=== PATIENT | male | born 1940 | race Caucasian/White ===

== ENCOUNTER 2017-01-09 09:04 | Day surgery (SDC) | payer MEDICARE ==
[2017-01-01 12:13] VITALS: BMI 31.6
--- NOTE | 2017-01-09 09:44 | RAD ---
HISTORY: pre-op COMPARISON: 10/21/2014 TECHNIQUE: Chest PA and lateral FINDINGS: LUNGS: No active pulmonary disease. PLEURA: No significant pleural effusion identified. No pneumothorax apparent. CARDIOVASCULAR: Normal. OSSEOUS STRUCTURES: No significant abnormalities. VISUALIZED UPPER ABDOMEN: Normal. OTHER FINDINGS: None. IMPRESSION: No active disease.
[2017-01-09] MEDS ORDERED: Iohexol 240 (50 ml) ONE (11:04)
[2017-01-09] MEDS ORDERED: Propofol 10 mg/ml Inj (20 ML) ONE (11:35)
[2017-01-09] MEDS ORDERED: Midazolam 2 MG/2 ML VIAL ONE (11:40)
[2017-01-09] MEDS ORDERED: Aztreonam 1 Gm in NS 100mL 100 ML IVPB STA (11:50)
[2017-01-09] MEDS ORDERED: Sevoflurane - Inhalation Anesthetic Liq (250 ml) ONE (11:51)
[2017-01-09] MEDS ORDERED: Lactated Ringer's 1,000 ML IV SCH (12:30)
[2017-01-09] MEDS ORDERED: Morphine 2 mg/ml ISec IVP ONE (13:00)
[2017-01-09] MEDS ORDERED: Morphine 2 mg/ml ISec ONE (13:03)
[2017-01-09] MEDS ORDERED: Morphine 2 mg/ml ISec IM STA (13:06)
--- NOTE | 2017-01-09 13:09 | OP ---
PROCEDURE DATE: 01/09/2017 PREOPERATIVE DIAGNOSIS: Right mid ureteral calculus. POSTOPERATIVE DIAGNOSIS: Right mid ureteral calculus. PROCEDURE: Cystoscopy, extraction of right pigtail stent, right ureteroscopy with laser lithotripsy using holmium laser of a mid right ureteral calculus and then insertion of a right pigtail stent, 6-F rench 26 cm. DESCRIPTION OF OPERATION: After adequate LMA anesthesia was given, the patient was placed in lithoto my, prepped and draped in usual manner. The 22-Guyanese cystourethroscope was introduced under direct vision. The right stent could be seen extruding from the right ureteral orifice. The other findings from the prior cystoscopy have not changed. The stent was grasped with foreign body forceps and bro ught out through the opening of the penis. A 0.035 sensor wire was then advanced through the stent u p to the kidney and the stent was then completely removed leaving the sensor wire in place. A 7-Fren ch semi-rigid long ureteroscope was then introduced. It was not necessary to dilate the ureteral luis fice, I could look up to the mid ureter where the stone was seen. It was lasered into small little p ieces at a setting of 6 and 6 on the holmium laser. Inspection of the rest of the ureter showed no e vidence of other stone, fragments remaining were very tiny and should easily pass. The ureter was co mpletely intact and the cystoscope was removed under direct vision. The sensor wire was then backloa ded on to the 22 Guyanese cystoscope and a 6-Guyanese 26 cm pigtail stent with the string still attached was then advanced over the sensor wire. When properly placed, the wire was removed and the stent coi led nicely in the right renal pelvis in the bladder. The bladder was drained. The cystoscope was re moved. Tegaderm was used to secure the string to the penis. The patient was then awakened and broug ht to recovery room in good condition. ADDENDUM Prior to starting procedure 1 gram of IV Azactam was given. Hank Gage MD cc: [phone] TT: 01/09/2017 13:09:14 jane
[2017-01-09 14:29] VITALS: RESP 18; TEMP 97.3
[2017-01-09 14:30] VITALS: BP 123/72; PULSE 66; O2SAT 94
--- NOTE | 2017-01-12 15:13 | RAD ---
PROCEDURE: Fluoroscopy up to 1 hour HISTORY: STENT REMOVAL/INSERTION / LASER LITHOTRIPSY (RIGHT) COMPARISON: TECHNIQUE: Fluoroscopy was provided in the operating room. 1 minutes and 41 seconds of fluoro time was utilized. Five images were submitted FINDINGS: Images show placement of a wire and stent in the right ureter IMPRESSION: As above
== END 2017-01-09 16:02 | disposition home or self-care (01) ==
LOC: SDS 09:04 → MERGE 11:00 → SDS 16:02
PROVIDERS: ATTEND Urology
DX: N20.1 Calculus of ureter (principal); I10 Essential (primary) hypertension
CPT/HCPCS: 52325; 52332; 71020; 76000; 87086; C2625; J2250; J2270; J2704; J3010; J7120 ×2; Q9966

== ENCOUNTER 2017-10-02 18:38 | Inpatient (IN) | payer MEDICARE ==
[2017-10-02 18:53] VITALS: BMI 30.7
--- NOTE | 2017-10-02 19:12 | ED PDOC ---
Arrival/HPI - General Chief Complaint: Flu-like Symptoms Time Seen by Provider: 10/02/17 18:55 Historian: Patient - History of Present Illness Narrative History of Present Illness (Text): 10/02/17 19:10 Yusef Montes is a 76 year old male, whose past medical history includes hypertension, diabetes, nephrolithiasis, presents to the Emergency department complaining of subjective fever and nausea from 3pm today. Patient informs taking tylenol per os with no improvement to symptoms. Patient denies chest pain , shortness of breath, abdominal pain, dysuria, hematuria or any other complaints. Time/Duration: 4-6 hours Symptom Onset: Gradual Symptom Course: Unchanged Activities at Onset: Light Context: Home Past Medical History - Provider Review Nursing Documentation Reviewed: Yes - Tetanus Immunization Tetanus Immunization: Unknown - Cardiac Hx Hypertension: Yes Hx Pacemaker: No - Pulmonary Hx Respiratory Disorders: No - Neurological Hx Paralysis: No - HEENT Hx Cataracts: Yes Hx Macular Degeneration: Yes - Renal Hx Kidney Stones: Yes - Endocrine/Metabolic Hx Diabetes Mellitus Type 2: Yes - Hematological/Oncological Hx Blood Transfusions: No - Integumentary Hx Dermatological Disorder: No - Musculoskeletal/Rheumatological Hx Musculoskeletal Disorders: Yes - Gastrointestinal Hx Gastrointestinal Disorders: No - Genitourinary/Gynecological Hx Genitourinary Disorders: No - Psychiatric Hx Emotional Abuse: No Hx Physical Abuse: No Hx Substance Use: No - Past Surgical History Past Surgical History: Non-Contributing - Surgical History Hx Appendectomy: Yes Other/Comment: eye laser surgery. hand surgery - Anesthesia Hx Anesthesia: Yes Hx Anesthesia Reactions: No Hx Malignant Hyperthermia: No - Suicidal Assessment Feels Threatened In Home Enviroment: No Family/Social History - Physician Review Nursing Documentation Reviewed: Yes Family/Social History: Unknown Family HX Smoking Status: Never Smoked Hx Alcohol Use: No Hx Substance Use: No Hx Substance Use Treatment: No Allergies/Home Meds Allergies/Adverse Reactions: Allergies ciprofloxacin [From Cipro] Allergy (Verified 10/02/17 18:53) RASH ciprofloxacin HCl [From Cipro] Allergy (Verified 10/02/17 18:53) RASH ibuprofen Allergy (Verified 10/02/17 18:53) RASH Penicillins Allergy (Verified 10/02/17 18:53) RASH Home Medications: Home Meds Medication Instructions Recorded Confirmed Aspirin [Ecotrin] 81 mg PO DAILY 01/01/17 10/02/17 Atorvastatin [Lipitor] 40 mg PO QPM 01/01/17 10/02/17 Cholecalciferol (Vitamin D3) 1,000 unit PO DAILY 01/01/17 10/02/17 [Vitamin D3] Cinnamon Bark [Zia Natural 2 cap PO DAILY 01/01/17 10/02/17 Cinnamon] Dorzolamide 2%/Timolol 0.5% 1 drop EACHEYE BID 01/01/17 10/02/17 [Cosopt Ocumeter Plus 2%-0.5% 10 Ml] Ezetimibe [Zetia] 10 mg PO QPM 01/01/17 10/02/17 Hydrocortisone Radha 0.2% Cr 15 applic TOP BID PRN 01/01/17 10/02/17 [Westcort] Latanoprost 1 drop EACHEYE HS 01/01/17 10/02/17 Losartan [Cozaar] 50 mg PO DAILY 01/01/17 10/02/17 Lutein/Zeaxanthin 1 cap PO DAILY 01/01/17 10/02/17 [Lutein-Zeaxanthin 25-5 mg Sfgl] Ranitidine HCl [Heartburn Relief] 150 mg PO DAILY 01/01/17 10/02/17 ALPRAZolam [Xanax] 0.25 mg PO DAILY PRN 01/09/17 10/02/17 Review of Systems - Physician Review All systems were reviewed & negative as marked: Yes - Review of Systems Constitutional: Fevers Eyes: Normal ENT: Normal Respiratory: Normal. absent: SOB, Cough Cardiovascular: Normal Gastrointestinal: Nausea. absent: Abdominal Pain Genitourinary Male: Normal. absent: Dysuria, Hematuria Musculoskeletal: Normal Skin: Normal Neurological: Normal Endocrine: Normal Hemo/Lymphatic: Normal Psychiatric: Normal Physical Exam Vital Signs Reviewed: Yes Vital Signs Temp Pulse Resp BP Pulse Ox 10/02/17 18:50 99.9 F H 120 H 16 126/71 97 Temperature: Febrile Blood Pressure: Normal Pulse: Tachycardic Respiratory Rate: Normal Appearance: Positive for: Well-Appearing, Non-Toxic, Comfortable Pain Distress: None Mental Status: Positive for: Alert and Oriented X 3 - Systems Exam Head: Present: Atraumatic, Normocephalic Pupils: Present: PERRL Extroacular Muscles: Present: EOMI Conjunctiva: Present: Normal Mouth: Present: Moist Mucous Membranes Neck: Present: Normal Range of Motion Respiratory/Chest: Present: Clear to Auscultation, Good Air Exchange. No: Respiratory Distress, Accessory Muscle Use Cardiovascular: Present: Regular Rate and Rhythm, Normal S1, S2. No: Murmurs Abdomen: Present: Normal Bowel Sounds. No: Tenderness, Distention, Peritoneal Signs Back: Present: Normal Inspection Upper Extremity: Present: Normal Inspection. No: Cyanosis, Edema Lower Extremity: Present: Normal Inspection. No: Edema Neurological: Present: GCS=15, CN II-XII Intact, Speech Normal Skin: Present: Warm, Dry, Normal Color. No: Rashes Psychiatric: Present: Alert, Oriented x 3, Normal Insight, Normal Concentration Medical Decision Making ED Course and Treatment: 10/02/17 19:15 Impression: 76 year old male presents to the Emergency department for subjective fever and associated nausea. Plan: --Blood Gas --EKG --Labs, lipase, magnesium --Chest X-ray --Tylenol --Blood Culture --Urine Culture --Influenza A B Stat --Urinalysis -- Reassess and disposition Progress Notes: - RAD Interpretation Radiology Orders: 10/02/17 19:10 CHEST PORTABLE [RAD] Stat - Medication Orders Current Medication Orders: Discontinued Medications Acetaminophen (Tylenol 325mg Tab) 975 mg PO STAT STA Stop: 10/02/17 19:13 - Scribe Statement The provider has reviewed the documentation as recorded by the Scribe Juan Manuel Oden. All medical record entries made by the Scribe were at my direction and personally dictated by me. I have reviewed the chart and agree that the record accurately reflects my personal performance of the history, physical exam, medical decision making, and the department course for this patient. I have also personally directed, reviewed, and agree with the discharge instructions and disposition. Disposition/Present on Arrival - Present on Arrival History of DVT/PE: No History of Uncontrolled Diabetes: No Urinary Catheter: No History of Decub. Ulcer: No History Surgical Site Infection Following: None - Disposition Forms: [employer] (Latvian)
[2017-10-02] MEDS ORDERED: cefTRIAXone 2 GM IN NS 2 GM/100 ML BAG IVPB STA (19:24)
[2017-10-02] MEDS ORDERED: Azithromycin 500MG/NS 250ml 500 MG/250 ML BAG IVPB STA (19:24)
[2017-10-02 19:36] LABS: BASO # 0.01 K/mm3 (0.0-2.0); BASO % 0.2 % (0.0-3.0); EOS % 0.2 % (1.5-5.0); GRAN # 3.54 (1.4-6.5); GRAN % 70.2 % (50.0-68.0); HEMATOCRIT 44.1 % (42.0-52.0); LYMPH # 1.2 (1.2-3.4); LYMPH % 23.2 % (22.0-35.0); MEAN CELL VOLUME 82.1 fl (80.0-105.0); MEAN CORPUSCULAR HEMOGLOBIN 26.6 pg (25.0-35.0); MEAN CORPUSCULAR HGB CONC 32.4 g/dl (31.0-37.0); MEAN PLATELET VOLUME 9.9 fl (7.0-11.0); MONO # 0.3 (0.1-0.6); MONO % 6.2 % (1.0-6.0); RED CELL DISTRIBUTION WIDTH 15.9 % (11.5-14.5); VENOUS BLOOD GAS BASE EXCESS -0.5 mmol/L (0.0-2.0)
[2017-10-02 19:51] LABS: INR 0.99 (0.93-1.08); PARTIAL THROMBOPLASTIN TIME 32.6 Seconds (25.1-36.5)
[2017-10-02 20:07] LABS: ALB/GLOB RATIO 1.6 (1.1-1.8); ALKALINE PHOSPHATASE 42 U/L (38-126); ALT/SGPT 39 U/L (7-56); AST/SGOT 34 U/L (17-59); BILIRUBIN,TOTAL 0.5 mg/dL (0.2-1.3); BLOOD UREA NITROGEN 22 mg/dL (7-21); CALCIUM 9.6 mg/dL (8.4-10.5); CARBON DIOXIDE 24 mmol/L (21-33); CHLORIDE 106 mmol/L (98-107); GFR AFRICAN-AMERICAN 55; GLUCOSE,RANDOM 159 mg/dL (70-110); LIPASE 143 U/L (23-300); MAGNESIUM 1.7 mg/dL (1.7-2.2); POTASSIUM 4.1 mmol/L (3.6-5.0); SODIUM 139 mmol/L (132-148); TOTAL PROTEIN 7.1 g/dL (5.8-8.3)
[2017-10-02 20:13] LABS: TROPONIN I < 0.01 ng/mL
[2017-10-02 21:58] LABS: PH,URINE 5.5 (4.7-8.0); URINE BILIRUBIN NEGATIVE (NEGATIVE); URINE BLOOD TRACE-INTACT (NEGATIVE); URINE GLUCOSE (UA) NEGATIVE (NEGATIVE); URINE KETONE NEGATIVE (NEGATIVE); URINE LEUKOCYTE ESTERASE NEGATIVE Leu/uL (NEGATIVE); URINE PROTEIN TRACE mg/dL (<30 mg/dL); URINE UROBILINOGEN 0.2 E.U./dL (<1 E.U./dL)
[2017-10-02 22:04] LABS: URINE APPEARANCE CLEAR (CLEAR); URINE COLOR YELLOW (YELLOW)
[2017-10-02 22:11] LABS: URINE AMORPHOUS SEDIMENT FEW; URINE BACTERIA MANY (NEG); URINE WBC 0 - 2 /hpf (0-6)
--- NOTE | 2017-10-02 23:05 | ED PDOC ---
Physical Exam Vital Signs Reviewed: Yes Vital Signs Temp Pulse Resp BP Pulse Ox 10/02/17 22:34 85 18 130/76 97 10/02/17 19:37 100.6 F H 10/02/17 18:50 99.9 F H 120 H 16 126/71 97 Appearance: Positive for: Well-Appearing, Non-Toxic, Comfortable Pain Distress: None Mental Status: Positive for: Alert and Oriented X 3 Medical Decision Making ED Course and Treatment: 10/02/17 23:05: Patient endorsed to my by Dr. Lyle. Pending Chest and Abdomen /Pelvis CT results. Willl reassess and disposition. 10/02/17 23:59: Discussed CT results with the patient. CT Chest Without Intravenous Contrast EXAM DATE/TIME: 10/02/2017 8:08 PM Dictated and Authenticated by: Avelina Azar MD IMPRESSION: No acute findings. - Lab Interpretations Lab Results: 10/02/17 19:20 10/02/17 19:20 Lab Results 10/02/17 21:32: Influenza Typ A,B (EIA) Negative for flu a/b 10/02/17 21:32: Urine Color Yellow, Urine Appearance Clear, Urine pH 5.5, Ur Specific Ryan >= 1.030, Urine Protein Trace H, Urine Glucose (UA) Negative, Urine Ketones Negative, Urine Blood Trace-intact H, Urine Nitrate Negative, Urine Bilirubin Negative, Urine Urobilinogen 0.2, Ur Leukocyte Esterase Negative , Urine RBC 2 - 5, Urine WBC 0 - 2, Ur Epithelial Cells None, Amorphous Sediment Few, Urine Bacteria Many, Urine Other Fiber 10/02/17 19:20: pO2 75 H, VBG pH 7.40, VBG pCO2 39.0 L, VBG HCO3 24.2, VBG Total CO2 25.4, VBG O2 Sat (Calc) 97.5 H, VBG Base Excess -0.5 L, VBG Potassium 4.1, Sodium 139.0, Chloride 106.0, Glucose 167 H, Lactate 1.9, FiO2 21.0, Venous Blood Potassium 4.1 10/02/17 19:20: Sodium 139, Chloride 106, Potassium 4.1, Carbon Dioxide 24, Anion Gap 13, BUN 22 H, Creatinine 1.5, Est GFR ( Amer) 55, Est GFR (Non- Af Amer) 46, Random Glucose 159 H, Calcium 9.6, Magnesium 1.7, Total Bilirubin 0.5, AST 34, ALT 39, Alkaline Phosphatase 42, Lactate Dehydrogenase 620, Total Creatine Kinase 247 H, CK-MB (CK-2) 2.3, CK-MB (CK-2) % Cancelled, Troponin I < 0.01, Total Protein 7.1, Albumin 4.3, Globulin 2.7, Albumin/Globulin Ratio 1.6, Lipase 143 10/02/17 19:20: PT 10.8, INR 0.99, APTT 32.6 10/02/17 19:20: WBC 5.0 D, RBC 5.37, Hgb 14.3, Hct 44.1, MCV 82.1, MCH 26.6, MCHC 32.4, RDW 15.9 H, Plt Count 170, MPV 9.9, Gran % 70.2 H, Lymph % (Auto) 23.2, [place] % (Auto) 6.2 H, Eos % (Auto) 0.2 L, Baso % (Auto) 0.2, Gran # 3.54, Lymph # 1.2, [place] # 0.3, Eos # 0.0, Baso # 0.01 - RAD Interpretation Radiology Orders: 10/02/17 19:10 CHEST PORTABLE [RAD] Stat 10/02/17 20:08 CHEST,ABDOMEN, PELVIS W/O CONT [CT] Stat - Medication Orders Current Medication Orders: Discontinued Medications Acetaminophen (Tylenol 325mg Tab) 975 mg PO STAT STA Stop: 10/02/17 19:13 Last Admin: 10/02/17 19:31 Dose: Not Given Non-Admin Reason: Patient Refused MAR Pain/Vitals Document 10/02/17 19:31 HP (Rec: 10/02/17 19:31 HP [id number]) Pain Reassessment Is This A Pain ReAssessment? No Ceftriaxone Sodium (Rocephin 2 Gm Ivpb) 2 gm in 100 mls @ 100 mls/hr IVPB STAT STA PRN Reason: Protocol Stop: 10/02/17 20:23 Last Admin: 10/02/17 21:30 Dose: 100 mls/hr eMAR Start Stop Document 10/02/17 21:30 IT (Rec: 10/02/17 21:30 IT [id number]) Intravenous Solution Start Date 10/02/17 Start Time 21:30 Azithromycin (Zithromax 500mg In Ns) 500 mg in 250 mls @ 167 mls/hr IVPB STAT STA PRN Reason: Protocol Stop: 10/02/17 20:53 Last Admin: 10/02/17 22:30 Dose: 167 mls/hr eMAR Start Stop Document 10/02/17 22:30 IT (Rec: 10/02/17 22:31 IT [id number]) Intravenous Solution Start Date 10/02/17 Start Time 22:31 Ondansetron HCl (Zofran Inj) 2 mg IVP STAT STA Stop: 10/02/17 23:12 Last Admin: 10/02/17 23:15 Dose: 2 mg IVP Administration Document 10/02/17 23:15 IT (Rec: 10/02/17 23:15 IT [id number]) Charges for Administration # of IVP Administrations 1 - Scribe Statement The provider has reviewed the documentation as recorded by the Shahriaribiain Ferrer Provider Scribe Attestation: All medical record entries made by the Scribe were at my direction and personally dictated by me. I have reviewed the chart and agree that the record accurately reflects my personal performance of the history, physical exam, medical decision making, and the department course for this patient. I have also personally directed, reviewed, and agree with the discharge instructions and disposition. Disposition/Present on Arrival - Present on Arrival History of DVT/PE: No History of Uncontrolled Diabetes: No Urinary Catheter: No History of Decub. Ulcer: No History Surgical Site Infection Following: None - Disposition Referrals: Gomez Gamboa MD [Primary Care Provider] - Follow up with primary Forms: [employer] (Peruvian)
--- NOTE | 2017-10-02 23:36 | CT ---
EXAM: CT Abdomen and Pelvis Without Intravenous Contrast CLINICAL HISTORY: 76 years old, male; Signs and symptoms; Fever; Additional info: Sepsis TECHNIQUE: Axial computed tomography images of the abdomen and pelvis without intravenous contrast. All CT scans at this facility use one or more dose reduction techniques, viz.: automated exposure control; ma/kV adjustment per patient size (including targeted exams where dose is matched to indication; i.e. head); or iterative reconstruction technique. Coronal and sagittal reformatted images were created and reviewed. COMPARISON: No relevant prior studies available. FINDINGS: Cholelithiasis without cholecystitis. The liver, spleen, pancreas are grossly normal. Bilateral perinephric stranding. There are non obstructing renal calculi. The previously seen distal right ureteral calculi is no longer present. There are cystic structures within the kidneys some within the region of the renal pelvis and the collecting system. Lack of intravenous contrast is limiting however they appear similar to prior. Exophytic posterior right renal cyst is noted similar to prior. The prostate is enlarged. The urinary bladder wall slightly thickened possibly secondary to chronic bladder outlet obstruction from enlarged prostate however superimposed cystitis with the possible. Correlation with urinalysis if indicated. Diverticulosis. Appendectomy. There is an umbilical fat hernia. IMPRESSION: Previously seen distal right ureteral calculi is no longer present. Otherwise no significant change. EXAM: CT Chest Without Intravenous Contrast EXAM DATE/TIME: 10/02/2017 8:08 PM CLINICAL HISTORY: 76 years old, male; Signs and symptoms; Fever; Additional info: Sepsis TECHNIQUE: Axial computed tomography images of the chest without intravenous contrast. All CT scans at this facility use one or more dose reduction techniques, viz.: automated exposure control; ma/kV adjustment per patient size (including targeted exams where dose is matched to indication; i.e. head); or iterative reconstruction technique. Coronal and sagittal reformatted images were created and reviewed. COMPARISON: CT - ABD PELVIS W/O PO OR IV CONT 2016-12-25 07:36 FINDINGS: No aortic aneurysm. No pleural or pericardial effussions. No pulmonary consolidation. No infiltrates. IMPRESSION: No acute findings.
[2017-10-03] MEDS ORDERED: Dextrose 5%/0.45% NS 1,000 ML IV SCH (01:00)
--- NOTE | 2017-10-03 01:08 | CP.PCM.HP ---
History of Present Illness - History of Present Illness History of Present Illness: 76 year old male with a past medical history of type 2 Diabetes, dyslipidemia, glaucoma, nephrolithiasis and macular degeneration who comes in complaining of malaise and fevers that began around 3 p.m. this afternoon. The patient reports taking Tylenol earlier with no improvement in his symptoms. The patient denies any alleviating or modifying factors. The patient denies any sick contacts. The patient denies any chest pain, shortness of breath, nausea, vomiting, lightheadedness ,dizziness, changes in vision, syncopal episodes or any other complaints. Primary medical doctor: Dr. Gamboa Inventory Auditor: Dr. Corley Urologist: Dr. Gage Past medical history: see HPI Past surgical history:eye surgery, appendectomy, tennis elbow correction Allergies: Ciproflaxcn, ibuprofen, Penicillin Social history: Quit smoking 46 years ago. Denies illicit drug use. Present on Admission - Present on Admission Any Indicators Present on Admission: No Review of Systems - Constitutional Constitutional: As Per HPI - EENT Eyes: As Per HPI Ears: As Per HPI Nose/Mouth/Throat: As Per HPI - Cardiovascular Cardiovascular: As Per HPI - Respiratory Respiratory: As Per HPI - Gastrointestinal Gastrointestinal: As Per HPI - Genitourinary Genitourinary: As Per HPI - Musculoskeletal Musculoskeletal: As Per HPI - Integumentary Integumentary: As Per HPI - Neurological Neurological: As Per HPI - Psychiatric Psychiatric: As Per HPI - Endocrine Endocrine: As Per HPI - Hematologic/Lymphatic Hematologic: As Per HPI Past Patient History - Tetanus Immunizations Tetanus Immunization: Unknown - Past Social History Smoking Status: Never Smoked - CARDIAC Hx Hypertension: Yes Hx Pacemaker: No - PULMONARY Hx Respiratory Disorders: No - NEUROLOGICAL Hx Paralysis: No - HEENT Hx Cataracts: Yes Hx Macular Degeneration: Yes - RENAL Hx Kidney Stones: Yes - ENDOCRINE/METABOLIC Hx Diabetes Mellitus Type 2: Yes - HEMATOLOGICAL/ONCOLOGICAL Hx Blood Transfusions: No - INTEGUMENTARY Hx Dermatological Problems: No - MUSCULOSKELETAL/RHEUMATOLOGICAL Hx Musculoskeletal Disorders: Yes - GASTROINTESTINAL Hx Gastrointestinal Disorders: No - GENITOURINARY/GYNECOLOGICAL Hx Genitourinary Disorders: No - PSYCHIATRIC Hx Emotional Abuse: No Hx Physical Abuse: No Hx Substance Use: No - SURGICAL HISTORY Hx Appendectomy: Yes Other/Comment: eye laser surgery. hand surgery - ANESTHESIA Hx Anesthesia: Yes Hx Anesthesia Reactions: No Hx Malignant Hyperthermia: No Meds Allergies/Adverse Reactions: Allergies Allergy/AdvReac Type Severity Reaction Status Date / Time ciprofloxacin [From Cipro] Allergy RASH Verified 10/02/17 18:53 ciprofloxacin HCl Allergy RASH Verified 10/02/17 18:53 [From Cipro] ibuprofen Allergy RASH Verified 10/02/17 18:53 Penicillins Allergy RASH Verified 10/02/17 18:53 Physical Exam - Head Exam Head Exam: ATRAUMATIC, NORMAL INSPECTION, NORMOCEPHALIC - Eye Exam Eye Exam: EOMI, Normal appearance, PERRL. absent: Periorbital tenderness Pupil Exam: NORMAL ACCOMODATION, PERRL. absent: Irregular, Unequal - ENT Exam ENT Exam: Mucous Membranes Moist, Normal Oropharynx - Neck Exam Neck exam: Positive for: Normal Inspection. Negative for: Lymphadenopathy, Thyromegaly - Respiratory Exam Respiratory Exam: Clear to Auscultation Bilateral, NORMAL BREATHING PATTERN. absent: Chest Wall Tenderness, Prolonged Expiratory Phase, Respiratory Distress - Cardiovascular Exam Cardiovascular Exam: REGULAR RHYTHM, +S1, +S2 - GI/Abdominal Exam GI & Abdominal Exam: Normal Bowel Sounds, Soft. absent: Organomegaly, Tenderness - Extremities Exam Extremities exam: Positive for: normal inspection. Negative for: joint swelling , pedal edema - Back Exam Back exam: NORMAL INSPECTION. absent: CVA tenderness (L), CVA tenderness (R), paraspinal tenderness - Neurological Exam Neurological exam: Alert, CN II-XII Intact, Oriented x3 - Psychiatric Exam Psychiatric exam: Normal Affect, Normal Mood - Skin Skin Exam: Dry, Intact Results - Vital Signs Recent Vital Signs: Last Vital Signs Temp 100.6 F H 10/02/17 19:37 Pulse 85 10/02/17 22:34 Resp 18 10/02/17 22:34 BP 130/76 10/02/17 22:34 Pulse Ox 97 10/02/17 22:34 - Labs Result Diagrams: 10/02/17 19:20 10/02/17 19:20 Assessment & Plan - Assessment and Plan (Free Text) Assessment: 76 year old male with past medical history type 2 diabetes, glaucoma, dyslipidemia, nephrolithiasis, and macular degeneration who comes in for subjective fevers and malaise. Plan: 1. UTI -Urinalysis showed many bacteria in the emergency department -Rocephin 1 gm Q24H. 2. Fever -Patient reports subjective fevers at home. Rectal temperature in the emergency department 100.6F. -Source of fever yet to be found. -Chest x ray was negative for acute disease. Procalcitonin ordered .Will follow up with results. -Tylenol PRN for fevers. 3. Lower extremity swelling bilaterally -Duplex ultrasound ordered. Will f/u with results. 4. Type 2 Diabetes -Home medications held -ISS. Accuchecks. -Diabetic diet 5. Dyslipidemia -restart home medications GI ppx -Protonix DVT ppx -SCD's
[2017-10-03] MEDS: cefTRIAXone 1 gm 1 GM/100 ML BAG IVPB SCH (09:10)
[2017-10-03] MEDS: Insulin Reg-LOW-Coverage SC SCH ×4 (09:10→21:30)
[2017-10-03 10:03] LABS: ALB/GLOB RATIO 1.5 (1.1-1.8); ALKALINE PHOSPHATASE 33 U/L (38-126); ALT/SGPT 40 U/L (7-56); AST/SGOT 28 U/L (17-59); BILIRUBIN,TOTAL 0.5 mg/dL (0.2-1.3); BLOOD UREA NITROGEN 16 mg/dL (7-21); CALCIUM 8.8 mg/dL (8.4-10.5); CARBON DIOXIDE 25 mmol/L (21-33); CHLORIDE 106 mmol/L (98-107); CHOLESTEROL 117 mg/dL (130-200); GFR AFRICAN-AMERICAN > 60; GLUCOSE,RANDOM 169 mg/dL (70-110); MAGNESIUM 1.8 mg/dL (1.7-2.2); POTASSIUM 4.3 mmol/L (3.6-5.0); SODIUM 139 mmol/L (132-148); TOTAL PROTEIN 6.2 g/dL (5.8-8.3)
--- NOTE | 2017-10-03 10:15 | RAD ---
HISTORY: sepsis COMPARISON: 01/09/2017 FINDINGS: LUNGS: No active pulmonary disease. PLEURA: No significant pleural effusion identified, no pneumothorax apparent. CARDIOVASCULAR: Normal. OSSEOUS STRUCTURES: No significant abnormalities. VISUALIZED UPPER ABDOMEN: Normal. OTHER FINDINGS: None. IMPRESSION: No active disease.
[2017-10-03 11:31] LABS: BASO # 0.01 K/mm3 (0.0-2.0); BASO % 0.2 % (0.0-3.0); EOS % 0.2 % (1.5-5.0); GRAN # 2.63 (1.4-6.5); HEMATOCRIT 40.1 % (42.0-52.0); LYMPH # 2.2 (1.2-3.4); LYMPH % 42.2 % (22.0-35.0); MEAN CELL VOLUME 82.2 fl (80.0-105.0); MEAN CORPUSCULAR HEMOGLOBIN 26.4 pg (25.0-35.0); MEAN CORPUSCULAR HGB CONC 32.2 g/dl (31.0-37.0); MEAN PLATELET VOLUME 9.6 fl (7.0-11.0); MONO # 0.4 (0.1-0.6); MONO % 7.4 % (1.0-6.0); WHITE BLOOD COUNT 5.3 10^3/ul (4.5-11.0)
[2017-10-03] MEDS ORDERED: Sodium Chloride 0.9% 1,000 ML IV SCH (12:45)
[2017-10-03] MEDS: Sodium Chloride 0.9% 1,000 ML IV SCH (13:24)
--- NOTE | 2017-10-03 15:11 | CARD ---
APPROVED REPORT EKG Measurement Heart [id number] <Conclusion> Normal sinus rhythm Left anterior fascicular block Cannot rule out Inferior infarct (masked by fascicular block?), age undetermined Abnormal ECG
[2017-10-03] MEDS: Latanoprost 2.5 ml Opht Soln OU SCH ×2 (22:02→22:10)
[2017-10-04] MEDS: Pantoprazole 40 mg EC Tab PO SCH (05:21)
[2017-10-04 06:35] LABS: BASO # 0.01 K/mm3 (0.0-2.0); BASO % 0.2 % (0.0-3.0); EOS # 0.1 (0.0-0.7); EOS % 1.8 % (1.5-5.0); GRAN # 2.83 (1.4-6.5); HEMATOCRIT 40.9 % (42.0-52.0); LYMPH # 2.7 (1.2-3.4); LYMPH % 42.5 % (22.0-35.0); MEAN CELL VOLUME 82.5 fl (80.0-105.0); MEAN CORPUSCULAR HGB CONC 31.5 g/dl (31.0-37.0); MONO # 0.7 (0.1-0.6); MONO % 10.5 % (1.0-6.0); RED CELL DISTRIBUTION WIDTH 16.2 % (11.5-14.5); WHITE BLOOD COUNT 6.3 10^3/ul (4.5-11.0)
[2017-10-04 06:45] LABS: ALB/GLOB RATIO 1.4 (1.1-1.8); ALKALINE PHOSPHATASE 38 U/L (38-126); ALT/SGPT 36 U/L (7-56); AST/SGOT 26 U/L (17-59); BILIRUBIN,TOTAL 0.2 mg/dL (0.2-1.3); BLOOD UREA NITROGEN 18 mg/dL (7-21); CALCIUM 8.6 mg/dL (8.4-10.5); CARBON DIOXIDE 25 mmol/L (21-33); CHLORIDE 107 mmol/L (98-107); GFR AFRICAN-AMERICAN > 60; GLUCOSE,RANDOM 105 mg/dL (70-110); SODIUM 140 mmol/L (132-148); TOTAL PROTEIN 5.9 g/dL (5.8-8.3)
[2017-10-04 09:26] LABS: NEUTROPHIL 40 % (50.0-70.0)
[2017-10-04 09:27] LABS: ATYPICAL LYMPHOCYTE 6 % (0.0-0.0); EOSINOPHIL 1 % (0.0-3.0)
[2017-10-04 09:29] LABS: PLATELET COUNT 142 10^3/uL (120.0-450.0)
[2017-10-04] MEDS: cefTRIAXone 1 gm 1 GM/100 ML BAG IVPB SCH (09:53)
[2017-10-04] MEDS: Insulin Reg-LOW-Coverage SC SCH ×4 (09:56→22:47)
[2017-10-04] MEDS: Sodium Chloride 0.9% 1,000 ML IV SCH (09:56)
[2017-10-04] MEDS ORDERED: Barium Sulfate Susp 2.1% w/v, 2.0% w/w 450 mL Bottle PO ONE (10:25)
--- NOTE | 2017-10-04 13:40 | CP.PCM.PN ---
<Paul Hernadez - Last Filed: 10/04/17 13:37> Subjective - Date & Time of Evaluation Date of Evaluation: 10/04/17 Time of Evaluation: 13:38 - Subjective Subjective: Patient seen and examined at bedside. I was called overnight on patient for right sided chest pain and shoulder pain. Per chart review, patient has a history of a positive spect stress test. Today, the patient states that his pain has completely resolved after toradol. We informed him that we would give him a prescription for it outpatient. Patient states that he feels much better today and has no other complaints. Objective - Vital Signs/Intake and Output Vital Signs (last 24 hours): Temp Pulse Resp BP Pulse Ox 98.6 F 60 20 124/75 96 10/04/17 09:13 10/04/17 09:54 10/04/17 09:13 10/04/17 09:54 10/04/17 09:13 Intake and Output: 10/04/17 10/04/17 06:59 18:59 Intake Total 780 Output Total 125 Balance 655 - Medications Medications: Current Medications Acetaminophen (Tylenol 325mg Tab) 650 mg PO Q4H PRN PRN Reason: Fever >100.4 F Alprazolam (Xanax) 0.25 mg PO DAILY PRN; Protocol PRN Reason: Anxiety Stop: 10/10/17 00:57 Atorvastatin Calcium (Lipitor) 40 mg PO QPM [facility] Last Admin: 10/03/17 17:31 Dose: 40 mg Ezetimibe (Zetia) 10 mg PO QPM [facility] Last Admin: 10/03/17 17:31 Dose: 10 mg Heparin Sodium (Porcine) (Heparin) 5,000 units SC Q12 JACOB PRN Reason: Protocol Last Admin: 10/04/17 09:53 Dose: 5,000 units Ceftriaxone Sodium (Rocephin 1 Gram Ivpb (D5w)) 1 gm in 100 mls @ 100 mls/hr IVPB DAILY JACOB PRN Reason: Protocol Last Admin: 10/04/17 09:53 Dose: 100 mls/hr Sodium Chloride (Sodium Chloride 0.9%) 1,000 mls @ 50 mls/hr IV .Q20H [facility] Last Admin: 10/04/17 09:56 Dose: 50 mls/hr Insulin Human Regular (Humulin R Low) 0 units SC ACHS JACOB PRN Reason: Protocol Last Admin: 10/04/17 09:56 Dose: Not Given Ketorolac Tromethamine (Toradol) 30 mg IVP Q6H PRN PRN Reason: pain Last Admin: 10/03/17 19:57 Dose: 30 mg Latanoprost (Xalatan Opht) 0 ml OU HS [facility] Last Admin: 10/03/17 22:10 Dose: Not Given Losartan Potassium (Cozaar) 50 mg PO DAILY [facility] Last Admin: 10/04/17 09:54 Dose: 50 mg Pantoprazole Sodium (Protonix Ec Tab) 40 mg PO 0600 [facility] Last Admin: 10/04/17 05:21 Dose: 40 mg - Labs Labs: 10/04/17 06:00 10/04/17 06:00 PT 10.8 SECONDS (9.4-12.5) 10/02/17 19:20 INR 0.99 (0.93-1.08) 10/02/17 19:20 APTT 32.6 Seconds (25.1-36.5) 10/02/17 19:20 - Constitutional Appears: Well, No Acute Distress - Head Exam Head Exam: ATRAUMATIC, NORMAL INSPECTION, NORMOCEPHALIC - Eye Exam Eye Exam: EOMI, Normal appearance, PERRL Pupil Exam: NORMAL ACCOMODATION, PERRL - ENT Exam ENT Exam: Mucous Membranes Moist, Normal Exam - Neck Exam Neck Exam: Full ROM, Normal Inspection. absent: Lymphadenopathy - Respiratory Exam Respiratory Exam: Clear to Ausculation Bilateral, NORMAL BREATHING PATTERN. absent: Decreased Breath Sounds, Rales, Rhonchi, Wheezes - Cardiovascular Exam Cardiovascular Exam: REGULAR RHYTHM, +S1, +S2. absent: Murmur - GI/Abdominal Exam GI & Abdominal Exam: Soft, Normal Bowel Sounds. absent: Tenderness - Rectal Exam Rectal Exam: NORMAL INSPECTION - Extremities Exam Extremities Exam: Full ROM, Normal Capillary Refill, Normal Inspection. absent : Joint Swelling, Pedal Edema - Back Exam Back Exam: NORMAL INSPECTION. absent: CVA tenderness (L), CVA tenderness (R) - Neurological Exam Neurological Exam: Alert, Awake, CN II-XII Intact, Normal Gait, Oriented x3 - Psychiatric Exam Psychiatric exam: Normal Affect, Normal Mood - Skin Skin Exam: Dry, Intact, Normal Color, Warm Assessment and Plan - Assessment and Plan (Free Text) Assessment: A/P 76 year old male with past medical history type 2 diabetes, HTN, glaucoma, dyslipidemia, nephrolithiasis, and macular degeneration who comes in for subjective fevers and malaise. UTI -Urinalysis showed many bacteria in the emergency department, but urine cultures were negative - Rocephin 1 gm Q24H. Costochondritis - Toradol Fever - Patient reports subjective fevers at home. Rectal temperature in the emergency department 100.6F. - Source of fever yet to be found. - Chest x ray was negative for acute disease. Procalcitonin negative - Tylenol PRN for fevers. - Patient going for a CT Abdomen with PO and IV contrast today, will follow up results Lower extremity swelling bilaterally - Duplex ultrasound ordered: performed, not read Type 2 Diabetes - Home medications held - RISS Low. Accuchecks. - Diabetic diet Anxiety - Continue home Xanax .25 Daily prn Dyslipidemia - Continue home Zetia - Continue home Lipitor Hypertension - Cozaar Glaucoma - Latanoprost GI/DVT Prophylaxis: Heparin, Protonix <Shad George - Last Filed: 10/04/17 18:29> Objective - Vital Signs/Intake and Output Vital Signs (last 24 hours): Temp Pulse Resp BP Pulse Ox 98.7 F 58 L 18 149/89 100 10/04/17 16:00 10/04/17 16:00 10/04/17 16:00 10/04/17 16:00 10/04/17 16:00 Intake and Output: 10/04/17 10/04/17 06:59 18:59 Intake Total 780 Output Total 125 Balance 655 - Medications Medications: Current Medications Acetaminophen (Tylenol 325mg Tab) 650 mg PO Q4H PRN PRN Reason: Fever >100.4 F Alprazolam (Xanax) 0.25 mg PO DAILY PRN; Protocol PRN Reason: Anxiety Stop: 10/10/17 00:57 Atorvastatin Calcium (Lipitor) 40 mg PO QPM [facility] Last Admin: 10/04/17 17:34 Dose: 40 mg Ezetimibe (Zetia) 10 mg PO QPM [facility] Last Admin: 10/04/17 17:34 Dose: 10 mg Heparin Sodium (Porcine) (Heparin) 5,000 units SC Q12 [facility] PRN Reason: Protocol Last Admin: 10/04/17 09:53 Dose: 5,000 units Ceftriaxone Sodium (Rocephin 1 Gram Ivpb (D5w)) 1 gm in 100 mls @ 100 mls/hr IVPB DAILY [facility] PRN Reason: Protocol Last Admin: 10/04/17 09:53 Dose: 100 mls/hr Sodium Chloride (Sodium Chloride 0.9%) 1,000 mls @ 50 mls/hr IV .Q20H [facility] Last Admin: 10/04/17 09:56 Dose: 50 mls/hr Insulin Human Regular (Humulin R Low) 0 units SC ACHS JACOB PRN Reason: Protocol Last Admin: 10/04/17 16:28 Dose: Not Given Ketorolac Tromethamine (Toradol) 30 mg IVP Q6H PRN PRN Reason: pain Last Admin: 10/03/17 19:57 Dose: 30 mg Latanoprost (Xalatan Opht) 0 ml OU HS [facility] Last Admin: 10/03/17 22:10 Dose: Not Given Losartan Potassium (Cozaar) 50 mg PO DAILY [facility] Last Admin: 10/04/17 09:54 Dose: 50 mg Pantoprazole Sodium (Protonix Ec Tab) 40 mg PO 0600 [facility] Last Admin: 10/04/17 05:21 Dose: 40 mg - Labs Labs: 10/04/17 06:00 10/04/17 06:00 PT 10.8 SECONDS (9.4-12.5) 10/02/17 19:20 INR 0.99 (0.93-1.08) 10/02/17 19:20 APTT 32.6 Seconds (25.1-36.5) 10/02/17 19:20 Attending/Attestation - Attestation I have personally seen and examined this patient.: Yes I have fully participated in the care of the patient.: Yes I have reviewed all pertinent clinical information, including history, physical exam and plan: Yes Notes (Text): 10/04/17 18:28 Patient seen and examined independently. Labs, vitals and imaging reviewed. he feels improvement in his symptoms and has remained afebrile so far. He developed a reaction to IZv contrast and will be observed tonight and discharged in AM after review of AM labs. Agree with the plan of care outlined above for management of his cystitis.
[2017-10-04] MEDS ORDERED: Iohexol 350 MG/100 ML VIAL ONE (13:59)
--- NOTE | 2017-10-04 15:44 | CT ---
PROCEDURE: CT Abdomen and Pelvis with contrast HISTORY: confirm cystitis COMPARISON: None. TECHNIQUE: Contrast dose: 100 cc of Omni 350 Radiation dose: 764 Total exam DLP = mGy-cm. This CT exam was performed using one or more of the following dose reduction techniques: Automated exposure control, adjustment of the mA and/or kV according to patient size, and/or use of iterative reconstruction technique. FINDINGS: LOWER THORAX: Unremarkable. LIVER: Unremarkable. No gross lesion or ductal dilatation. GALLBLADDER AND BILE DUCTS: Unremarkable. PANCREAS: Unremarkable. No gross lesion or ductal dilatation. SPLEEN: Unremarkable. ADRENALS: Unremarkable. No mass. KIDNEYS AND URETERS: Multiple parapelvic cysts are seen bilaterally. There is no evidence of hydronephrosis. There is no ureteral stone. There is a nonobstructing stone in the lower pole of the left kidney VASCULATURE: Unremarkable. No aortic aneurysm. BOWEL: Unremarkable. No obstruction. No gross mural thickening. APPENDIX: Normal appendix. PERITONEUM: Unremarkable. No free fluid. No free air. LYMPH NODES: Unremarkable. No enlarged lymph nodes. BLADDER: No significant mural thickening or enhancement. REPRODUCTIVE: The prostate is enlarged measuring 4.5 x 6 cm. There are some calcifications within the gland. BONES: No acute fracture. OTHER FINDINGS: None. IMPRESSION: Enlarged prostate. Bladder unremarkable. No evidence of hydronephrosis. Multiple parapelvic cysts.
[2017-10-04] MEDS ORDERED: DiphenhydrAMINE 50 mg/ml Inj IVP ONE (15:54)
--- NOTE | 2017-10-04 17:34 | CARD ---
APPROVED REPORT EKG Measurement Heart [id number] <Conclusion> Normal sinus rhythm Possible Left atrial enlargement Rightward axis Incomplete right bundle branch block Borderline ECG
[2017-10-04] MEDS: Latanoprost 2.5 ml Opht Soln OU SCH ×2 (22:53→23:06)
[2017-10-05 04:36] VITALS: RESP 20
[2017-10-05] MEDS: Pantoprazole 40 mg EC Tab PO SCH (05:41)
[2017-10-05] MEDS: Sodium Chloride 0.9% 1,000 ML IV SCH (05:41)
[2017-10-05 07:02] LABS: ALB/GLOB RATIO 1.4 (1.1-1.8); ALKALINE PHOSPHATASE 40 U/L (38-126); ALT/SGPT 40 U/L (7-56); AST/SGOT 24 U/L (17-59); BILIRUBIN,TOTAL 0.3 mg/dL (0.2-1.3); BLOOD UREA NITROGEN 16 mg/dL (7-21); CARBON DIOXIDE 25 mmol/L (21-33); CHLORIDE 107 mmol/L (98-107); GFR AFRICAN-AMERICAN > 60; GLUCOSE,RANDOM 96 mg/dL (70-110); POTASSIUM 4.5 mmol/L (3.6-5.0); SODIUM 141 mmol/L (132-148)
[2017-10-05 07:07] LABS: BASO # 0.02 K/mm3 (0.0-2.0); BASO % 0.3 % (0.0-3.0); EOS # 0.1 (0.0-0.7); EOS % 1.7 % (1.5-5.0); GRAN # 2.55 (1.4-6.5); GRAN % 39.9 % (50.0-68.0); HEMATOCRIT 40.3 % (42.0-52.0); LYMPH # 2.9 (1.2-3.4); LYMPH % 45.8 % (22.0-35.0); MEAN CELL VOLUME 82.4 fl (80.0-105.0); MEAN CORPUSCULAR HEMOGLOBIN 25.8 pg (25.0-35.0); MEAN CORPUSCULAR HGB CONC 31.3 g/dl (31.0-37.0); MEAN PLATELET VOLUME 9.8 fl (7.0-11.0); MONO # 0.8 (0.1-0.6); MONO % 12.3 % (1.0-6.0); RED CELL DISTRIBUTION WIDTH 15.9 % (11.5-14.5); WHITE BLOOD COUNT 6.4 10^3/ul (4.5-11.0)
[2017-10-05 08:45] VITALS: BP 126/80; TEMP 98.8; O2SAT 96
[2017-10-05] MEDS: Insulin Reg-LOW-Coverage SC SCH ×2 (09:32→12:10)
[2017-10-05] MEDS: cefTRIAXone 1 gm 1 GM/100 ML BAG IVPB SCH (09:32)
[2017-10-05 09:41] VITALS: PULSE 62
--- NOTE | 2017-10-05 10:28 | US ---
HISTORY: Leg pain and swelling. Evaluate for DVT PHYSICIAN(S): Blane Keane MD. TECHNIQUE: Duplex sonography and color-flow Doppler with graded compression were used to evaluate the deep venous systems of both lower extremities. FINDINGS: The visualized deep venous systems of both lower extremities are sonographically normal and compressible. Normal wave forms and augmentation are seen. There is no sonographic evidence for deep venous thrombosis in the visualized segments of both lower extremities. IMPRESSION: No sonographic evidence for deep venous thrombosis in the visualized segments of both lower extremities.
--- NOTE | 2017-10-05 17:16 | CP.PCM.DIS ---
<Estrella Thompson - Last Filed: 10/05/17 17:14> Provider - Provider Date of Admission: 10/03/17 00:03 Attending physician: Jeffrey Ugalde MD Primary care physician: Gomez Gamboa MD Time Spent in preparation of Discharge (in minutes): 45 Hospital Course - Lab Results Lab Results: Most Recent Lab Values WBC 6.4 10^3/ul (4.5-11.0) 10/05/17 06:20 RBC 4.89 10^6/uL (3.5-6.1) 10/05/17 06:20 Hgb 12.6 g/dL (14.0-18.0) L 10/05/17 06:20 Hct 40.3 % (42.0-52.0) L 10/05/17 06:20 MCV 82.4 fl (80.0-105.0) 10/05/17 06:20 MCH 25.8 pg (25.0-35.0) 10/05/17 06:20 MCHC 31.3 g/dl (31.0-37.0) 10/05/17 06:20 RDW 15.9 % (11.5-14.5) H 10/05/17 06:20 Plt Count 147 10^3/uL (120.0-450.0) 10/05/17 06:20 MPV 9.8 fl (7.0-11.0) 10/05/17 06:20 Gran % 39.9 % (50.0-68.0) L 10/05/17 06:20 Lymph % (Auto) 45.8 % (22.0-35.0) H 10/05/17 06:20 Dawson % (Auto) 12.3 % (1.0-6.0) H 10/05/17 06:20 Eos % (Auto) 1.7 % (1.5-5.0) 10/05/17 06:20 Baso % (Auto) 0.3 % (0.0-3.0) 10/05/17 06:20 Gran # 2.55 (1.4-6.5) 10/05/17 06:20 Lymph # 2.9 (1.2-3.4) 10/05/17 06:20 Dawson # 0.8 (0.1-0.6) H 10/05/17 06:20 Eos # 0.1 (0.0-0.7) 10/05/17 06:20 Baso # 0.02 K/mm3 (0.0-2.0) 10/05/17 06:20 Neutrophils % (Manual) 40 % (50.0-70.0) L 10/04/17 06:00 Lymphocytes % (Manual) 38 % (22.0-35.0) H 10/04/17 06:00 Atypical Lymphs % 6 % (0.0-0.0) H 10/04/17 06:00 Monocytes % (Manual) 15 % (1.0-6.0) H 10/04/17 06:00 Eosinophils % (Manual) 1 % (0.0-3.0) 10/04/17 06:00 PT 10.8 SECONDS (9.4-12.5) 10/02/17 19:20 INR 0.99 (0.93-1.08) 10/02/17 19:20 APTT 32.6 Seconds (25.1-36.5) 10/02/17 19:20 pO2 75 mm/Hg (30-55) H 10/02/17 19:20 VBG pH 7.40 (7.32-7.43) 10/02/17 19:20 VBG pCO2 39.0 (40-60) L 10/02/17 19:20 VBG HCO3 24.2 mmol/l (21-28) 10/02/17 19:20 VBG Total CO2 25.4 mmol.L (22-28) 10/02/17 19:20 VBG O2 Sat (Calc) 97.5 % (40-65) H 10/02/17 19:20 VBG Base Excess -0.5 mmol/L (0.0-2.0) L 10/02/17 19:20 VBG Potassium 4.1 mmol/L (3.6-5.2) 10/02/17 19:20 Sodium 139.0 mmol/L (132-148) 10/02/17 19:20 Chloride 106.0 mmol/L (98-107) 10/02/17 19:20 Glucose 167 mg/dl (75-110) H 10/02/17 19:20 Lactate 1.9 mmol/L (0.7-2.1) 10/02/17 19:20 FiO2 21.0 % 10/02/17 19:20 Sodium 141 mmol/L (132-148) 10/05/17 06:20 Potassium 4.5 mmol/L (3.6-5.0) 10/05/17 06:20 Chloride 107 mmol/L (98-107) 10/05/17 06:20 Carbon Dioxide 25 mmol/L (21-33) 10/05/17 06:20 Anion Gap 13 (10-20) 10/05/17 06:20 BUN 16 mg/dL (7-21) 10/05/17 06:20 Creatinine 1.1 mg/dl (0.8-1.5) 10/05/17 06:20 Est GFR ( Amer) > 60 10/05/17 06:20 Est GFR (Non-Af Amer) > 60 10/05/17 06:20 POC Glucose (mg/dL) 85 mg/dL (65-110) 10/05/17 11:14 Random Glucose 96 mg/dL (70-110) 10/05/17 06:20 Hemoglobin A1c 6.7 % (4.2-6.5) H 10/03/17 08:40 Calcium 9.0 mg/dL (8.4-10.5) 10/05/17 06:20 Phosphorus 3.0 mg/dL (2.5-4.5) 10/03/17 08:40 Magnesium 1.8 mg/dL (1.7-2.2) 10/03/17 08:40 Total Bilirubin 0.3 mg/dL (0.2-1.3) 10/05/17 06:20 AST 24 U/L (17-59) 10/05/17 06:20 ALT 40 U/L (7-56) 10/05/17 06:20 Alkaline Phosphatase 40 U/L (38-126) 10/05/17 06:20 Lactate Dehydrogenase 620 U/L (333-699) 10/02/17 19:20 Total Creatine Kinase 247 U/L (35-230) H 10/02/17 19:20 CK-MB (CK-2) 2.3 ng/mL (0.0-3.6) 10/02/17 19:20 CK-MB (CK-2) % Cancelled 10/02/17 19:20 Troponin I < 0.01 ng/mL 10/03/17 16:30 Total Protein 6.0 g/dL (5.8-8.3) 10/05/17 06:20 Albumin 3.5 g/dL (3.0-4.8) 10/05/17 06:20 Globulin 2.5 gm/dL 10/05/17 06:20 Albumin/Globulin Ratio 1.4 (1.1-1.8) 10/05/17 06:20 Triglycerides 62 mg/dL (35-160) 10/03/17 08:40 Cholesterol 117 mg/dL (130-200) L 10/03/17 08:40 LDL Cholesterol Direct 40 mg/dL (0-129) 10/03/17 08:40 HDL Cholesterol 54 mg/dL (29-60) 10/03/17 08:40 Lipase 143 U/L (23-300) 10/02/17 19:20 Venous Blood Potassium 4.1 mmol/L (3.6-5.2) 10/02/17 19:20 Urine Color Yellow (YELLOW) 10/02/17 21:32 Urine Appearance Clear (CLEAR) 10/02/17 21:32 Urine pH 5.5 (4.7-8.0) 10/02/17 21:32 Ur Specific Caroline >= 1.030 (1.005-1.035) 10/02/17 21:32 Urine Protein Trace mg/dL (<30 mg/dL) H 10/02/17 21:32 Urine Glucose (UA) Negative mg/dL (NEGATIVE) 10/02/17 21:32 Urine Ketones Negative mg/dL (NEGATIVE) 10/02/17 21:32 Urine Blood Trace-intact (NEGATIVE) H 10/02/17 21:32 Urine Nitrate Negative (NEGATIVE) 10/02/17 21:32 Urine Bilirubin Negative (NEGATIVE) 10/02/17 21:32 Urine Urobilinogen 0.2 E.U./dL (<1 E.U./dL) 10/02/17 21:32 Ur Leukocyte Esterase Negative [place]/uL (NEGATIVE) 10/02/17 21:32 Urine RBC 2 - 5 /hpf (0-2) 10/02/17 21:32 Urine WBC 0 - 2 /hpf (0-6) 10/02/17 21:32 Ur Epithelial Cells None /hpf (0-5) 10/02/17 21:32 Amorphous Sediment Few 10/02/17 21:32 Urine Bacteria Many (NEG) 10/02/17 21:32 Urine Other Fiber 10/02/17 21:32 Influenza Typ A,B (EIA) Negative for flu a/b (NEGATIVE) 10/02/17 21:32 - Hospital Course Hospital Course: 76yo M PMHx type 2 Diabetes, dyslipidemia, glaucoma, nephrolithiasis and macular degeneration presents with malaise and fevers. Tmax of 100.6. The patient was treated for positive UA and possible UTI. US of the LE was negative for DVT. CT Chest/Abd/Pelvis without showed Non-obstructing renal calculi with b /l perinephric stranding; cystic structures within kidneys. Chest XRay showed No active disease. Patient was scheduled for CT abd/pelvis with contrasted outpatient, he received it during hospital course. He developed a mild allergic reaction to contrast, which resolved after Benadryl was administered. He was observed for worsening of reaction. Today patient is feeling well, denies any pain, fever, chill. He has been afebrile since admission. He is aware of hospital course. He is discharged with PO antibiotics and is instructed to follow up with PMD. Discharge Exam - Head Exam Head Exam: ATRAUMATIC, NORMAL INSPECTION, NORMOCEPHALIC - Eye Exam Eye Exam: EOMI, Normal appearance - ENT Exam ENT Exam: Mucous Membranes Moist - Respiratory Exam Respiratory Exam: Clear to PA & Lateral, NORMAL BREATHING PATTERN, UNREMARKABLE. absent: Wheezes, Respiratory Distress - Cardiovascular Exam Cardiovascular Exam: REGULAR RHYTHM, +S1, +S2. absent: Tachycardia, Systolic Murmur - GI/Abdominal Exam GI & Abdominal Exam: Normal Bowel Sounds, Unremarkable. absent: Distended, Firm , Soft, Tenderness - Extremities Exam Extremities exam: normal inspection - Neurological Exam Neurological exam: Alert, CN II-XII Intact, Oriented x3, Reflexes Normal - Psychiatric Exam Psychiatric exam: Normal Affect, Normal Mood - Skin Skin Exam: Dry, Intact, Normal Color, Warm Discharge Plan - Discharge Medications Prescriptions: Cefpodoxime [Vantin] 200 mg PO Q12 #10 tab Ketorolac Tromethamine [Toradol] 10 mg PO DAILY PRN #15 tab PRN Reason: Pain, Severe (8-10) - Follow Up Plan Condition: GOOD Disposition: HOME/ ROUTINE Instructions: Pneumococcal Vaccine for Adults (DC), Kidney Stones (DC), Fever in Adults (GEN), Diabetes Mellitus Type 1 in Adults (DC), Influenza Vaccine (DC) , Basic Carbohydrate Counting (DC), Acute Nausea and Vomiting (DC), Hypertension (DC) Additional Instructions: Follow up with primary care provider. Return to local ER if symptoms worsen. antibiotic cefpodxime BID for 5 days Referrals: Gomez Gamboa MD [Primary Care Provider] - <Jeffrey Ugalde - Last Filed: 10/05/17 17:22> Provider - Provider Date of Admission: 10/03/17 00:03 Attending physician: Jeffrey Ugalde MD Primary care physician: Gomez Gamboa MD Hospital Course - Lab Results Lab Results: Most Recent Lab Values WBC 6.4 10^3/ul (4.5-11.0) 10/05/17 06:20 RBC 4.89 10^6/uL (3.5-6.1) 10/05/17 06:20 Hgb 12.6 g/dL (14.0-18.0) L 10/05/17 06:20 Hct 40.3 % (42.0-52.0) L 10/05/17 06:20 MCV 82.4 fl (80.0-105.0) 10/05/17 06:20 MCH 25.8 pg (25.0-35.0) 10/05/17 06:20 MCHC 31.3 g/dl (31.0-37.0) 10/05/17 06:20 RDW 15.9 % (11.5-14.5) H 10/05/17 06:20 Plt Count 147 10^3/uL (120.0-450.0) 10/05/17 06:20 MPV 9.8 fl (7.0-11.0) 10/05/17 06:20 Gran % 39.9 % (50.0-68.0) L 10/05/17 06:20 Lymph % (Auto) 45.8 % (22.0-35.0) H 10/05/17 06:20 Dawson % (Auto) 12.3 % (1.0-6.0) H 10/05/17 06:20 Eos % (Auto) 1.7 % (1.5-5.0) 10/05/17 06:20 Baso % (Auto) 0.3 % (0.0-3.0) 10/05/17 06:20 Gran # 2.55 (1.4-6.5) 10/05/17 06:20 Lymph # 2.9 (1.2-3.4) 10/05/17 06:20 Dawson # 0.8 (0.1-0.6) H 10/05/17 06:20 Eos # 0.1 (0.0-0.7) 10/05/17 06:20 Baso # 0.02 K/mm3 (0.0-2.0) 10/05/17 06:20 Neutrophils % (Manual) 40 % (50.0-70.0) L 10/04/17 06:00 Lymphocytes % (Manual) 38 % (22.0-35.0) H 10/04/17 06:00 Atypical Lymphs % 6 % (0.0-0.0) H 10/04/17 06:00 Monocytes % (Manual) 15 % (1.0-6.0) H 10/04/17 06:00 Eosinophils % (Manual) 1 % (0.0-3.0) 10/04/17 06:00 PT 10.8 SECONDS (9.4-12.5) 10/02/17 19:20 INR 0.99 (0.93-1.08) 10/02/17 19:20 APTT 32.6 Seconds (25.1-36.5) 10/02/17 19:20 pO2 75 mm/Hg (30-55) H 10/02/17 19:20 VBG pH 7.40 (7.32-7.43) 10/02/17 19:20 VBG pCO2 39.0 (40-60) L 10/02/17 19:20 VBG HCO3 24.2 mmol/l (21-28) 10/02/17 19:20 VBG Total CO2 25.4 mmol.L (22-28) 10/02/17 19:20 VBG O2 Sat (Calc) 97.5 % (40-65) H 10/02/17 19:20 VBG Base Excess -0.5 mmol/L (0.0-2.0) L 10/02/17 19:20 VBG Potassium 4.1 mmol/L (3.6-5.2) 10/02/17 19:20 Sodium 139.0 mmol/L (132-148) 10/02/17 19:20 Chloride 106.0 mmol/L (98-107) 10/02/17 19:20 Glucose 167 mg/dl (75-110) H 10/02/17 19:20 Lactate 1.9 mmol/L (0.7-2.1) 10/02/17 19:20 FiO2 21.0 % 10/02/17 19:20 Sodium 141 mmol/L (132-148) 10/05/17 06:20 Potassium 4.5 mmol/L (3.6-5.0) 10/05/17 06:20 Chloride 107 mmol/L (98-107) 10/05/17 06:20 Carbon Dioxide 25 mmol/L (21-33) 10/05/17 06:20 Anion Gap 13 (10-20) 10/05/17 06:20 BUN 16 mg/dL (7-21) 10/05/17 06:20 Creatinine 1.1 mg/dl (0.8-1.5) 10/05/17 06:20 Est GFR ( Amer) > 60 10/05/17 06:20 Est GFR (Non-Af Amer) > 60 10/05/17 06:20 POC Glucose (mg/dL) 85 mg/dL (65-110) 10/05/17 11:14 Random Glucose 96 mg/dL (70-110) 10/05/17 06:20 Hemoglobin A1c 6.7 % (4.2-6.5) H 10/03/17 08:40 Calcium 9.0 mg/dL (8.4-10.5) 10/05/17 06:20 Phosphorus 3.0 mg/dL (2.5-4.5) 10/03/17 08:40 Magnesium 1.8 mg/dL (1.7-2.2) 10/03/17 08:40 Total Bilirubin 0.3 mg/dL (0.2-1.3) 10/05/17 06:20 AST 24 U/L (17-59) 10/05/17 06:20 ALT 40 U/L (7-56) 10/05/17 06:20 Alkaline Phosphatase 40 U/L (38-126) 10/05/17 06:20 Lactate Dehydrogenase 620 U/L (333-699) 10/02/17 19:20 Total Creatine Kinase 247 U/L (35-230) H 10/02/17 19:20 CK-MB (CK-2) 2.3 ng/mL (0.0-3.6) 10/02/17 19:20 CK-MB (CK-2) % Cancelled 10/02/17 19:20 Troponin I < 0.01 ng/mL 10/03/17 16:30 Total Protein 6.0 g/dL (5.8-8.3) 10/05/17 06:20 Albumin 3.5 g/dL (3.0-4.8) 10/05/17 06:20 Globulin 2.5 gm/dL 10/05/17 06:20 Albumin/Globulin Ratio 1.4 (1.1-1.8) 10/05/17 06:20 Triglycerides 62 mg/dL (35-160) 10/03/17 08:40 Cholesterol 117 mg/dL (130-200) L 10/03/17 08:40 LDL Cholesterol Direct 40 mg/dL (0-129) 10/03/17 08:40 HDL Cholesterol 54 mg/dL (29-60) 10/03/17 08:40 Lipase 143 U/L (23-300) 10/02/17 19:20 Venous Blood Potassium 4.1 mmol/L (3.6-5.2) 10/02/17 19:20 Urine Color Yellow (YELLOW) 10/02/17 21:32 Urine Appearance Clear (CLEAR) 10/02/17 21:32 Urine pH 5.5 (4.7-8.0) 10/02/17 21:32 Ur Specific Caroline >= 1.030 (1.005-1.035) 10/02/17 21:32 Urine Protein Trace mg/dL (<30 mg/dL) H 10/02/17 21:32 Urine Glucose (UA) Negative mg/dL (NEGATIVE) 10/02/17 21:32 Urine Ketones Negative mg/dL (NEGATIVE) 10/02/17 21:32 Urine Blood Trace-intact (NEGATIVE) H 10/02/17 21:32 Urine Nitrate Negative (NEGATIVE) 10/02/17 21:32 Urine Bilirubin Negative (NEGATIVE) 10/02/17 21:32 Urine Urobilinogen 0.2 E.U./dL (<1 E.U./dL) 10/02/17 21:32 Ur Leukocyte Esterase Negative [place]/uL (NEGATIVE) 10/02/17 21:32 Urine RBC 2 - 5 /hpf (0-2) 10/02/17 21:32 Urine WBC 0 - 2 /hpf (0-6) 10/02/17 21:32 Ur Epithelial Cells None /hpf (0-5) 10/02/17 21:32 Amorphous Sediment Few 10/02/17 21:32 Urine Bacteria Many (NEG) 10/02/17 21:32 Urine Other Fiber 10/02/17 21:32 Influenza Typ A,B (EIA) Negative for flu a/b (NEGATIVE) 10/02/17 21:32 Attending/Attestation - Attestation I have personally seen and examined this patient.: Yes I have fully participated in the care of the patient.: Yes I have reviewed all pertinent clinical information, including history, physical exam and plan: Yes Notes (Text): 10/05/17 17:18 76 year old male with past medical history of hypertension and diabetes who presented with complaint of fever and malaise. He was started on antibiotics for cystitis. His symptoms improved and he remained afebrile. He is discharged home today on po antibiotics. Follow up with pmd and urology. Jeffrey Ugalde MD Hospitalist.
[2017-10-06] MEDS ORDERED: Cefpodoxime (Vantin) 200 mg Tab PO SCH (10:00)
== END 2017-10-05 13:38 | disposition home or self-care (01) | DRG 690 ==
LOC: ED 18:38 → ERH 10-03 00:03 → 5RNO 10-03 01:35
PROVIDERS: ADMIT Internal Medicine; ATTEND Internal Medicine
DX: N30.90 Cystitis, unspecified without hematuria (principal); E11.9 Type 2 diabetes mellitus without complications; I10 Essential (primary) hypertension; E78.5 Hyperlipidemia, unspecified; F41.9 Anxiety disorder, unspecified; H35.30 Unspecified macular degeneration; H40.9 Unspecified glaucoma; M94.0 Chondrocostal junction syndrome [Tietze]; N20.0 Calculus of kidney; Z79.82 Long term (current) use of aspirin; Z79.899 Other long term (current) drug therapy; Z87.442 Personal history of urinary calculi; Z87.891 Personal history of nicotine dependence; Z90.49 Acquired absence of other specified parts of digestive tract; Z91.041 Radiographic dye allergy status; Z88.6 Allergy status to analgesic agent; Z88.1 Allergy status to other antibiotic agents; Z88.0 Allergy status to penicillin; R40.2412 Glasgow coma scale score 13-15, at arrival to emergency department

== ENCOUNTER 2017-10-27 07:11 | Emergency (ER) | payer MEDICARE, OTHER ==
[2017-10-27 07:12] VITALS: BMI 30.7
[2017-10-27 07:32] VITALS: TEMP 97.5
[2017-10-27] MEDS ORDERED: Lidocaine 5% Patch TD STA (08:04)
--- NOTE | 2017-10-27 08:15 | ED PDOC ---
Arrival/HPI - General Chief Complaint: Upper Extremity Problem/Injury Time Seen by Provider: 10/27/17 07:28 Historian: Patient - History of Present Illness Narrative History of Present Illness (Text): 10/27/17 08:00 A 76 year old male, whose past medical history includes hypertension, diabetes type 2 (blood sugar reading this morning is 97), and nephrolithiasis, presents to the emergency department complaining of right shoulder blade pain for approximately 2 months. Patient reports severe pain occurs in the back middle of shoulder blade and worsens with movement. States pain comes and goes. Patient is uncertain of what may have caused pain, believes it may have occurred from playing ball over the years. Patient denies of any right arm numbness/tingling and has no other complaints at this time. Patient has taken no medications to relieve pain. Also, patient mentions 3 days ago, was admitted to hospital for bladder infection. PMD: Dr. Gomez Gamboa Time/Duration: Other (2 months) Symptom Onset: Gradual Symptom Course: Unchanged Past Medical History - Provider Review Nursing Documentation Reviewed: Yes - Infectious Disease Hx of Infectious Diseases: None - Tetanus Immunization Tetanus Immunization: Unknown - Cardiac Hx Hypertension: Yes - Pulmonary Hx Respiratory Disorders: No - Neurological Hx Neurological Disorder: No - HEENT Hx Cataracts: Yes Hx Macular Degeneration: Yes - Renal Hx Kidney Stones: Yes - Endocrine/Metabolic Hx Diabetes Mellitus Type 2: Yes - Hematological/Oncological Hx Blood Disorders: No - Integumentary Hx Dermatological Disorder: No - Musculoskeletal/Rheumatological Hx Musculoskeletal Disorders: Yes - Gastrointestinal Hx Gastrointestinal Disorders: No - Genitourinary/Gynecological Hx Genitourinary Disorders: No - Psychiatric Hx Psychophysiologic Disorder: No Hx Substance Use: No - Past Surgical History Past Surgical History: Non-Contributing - Surgical History Hx Appendectomy: Yes Other/Comment: eye laser surgery. hand surgery - Anesthesia Hx Anesthesia: Yes Hx Anesthesia Reactions: No Hx Malignant Hyperthermia: No - Suicidal Assessment Feels Threatened In Home Enviroment: No Family/Social History - Physician Review Nursing Documentation Reviewed: Yes Family/Social History: No Known Family HX Smoking Status: Never Smoked Hx Alcohol Use: No Hx Substance Use: No Hx Substance Use Treatment: No Allergies/Home Meds Allergies/Adverse Reactions: Allergies ciprofloxacin [From Cipro] Allergy (Verified 10/27/17 07:32) RASH ciprofloxacin HCl [From Cipro] Allergy (Verified 10/27/17 07:32) RASH ibuprofen Allergy (Verified 10/27/17 07:32) RASH Penicillins Allergy (Verified 10/27/17 07:32) RASH Home Medications: Home Meds Medication Instructions Recorded Confirmed Aspirin [Ecotrin] 81 mg PO DAILY 01/01/17 10/27/17 Atorvastatin [Lipitor] 40 mg PO QPM 01/01/17 10/27/17 Cholecalciferol (Vitamin D3) 1,000 unit PO DAILY 01/01/17 10/27/17 [Vitamin D3] Cinnamon Bark [Zia Natural 2 cap PO DAILY 01/01/17 10/27/17 Cinnamon] Dorzolamide 2%/Timolol 0.5% 1 drop EACHEYE BID 01/01/17 10/27/17 [Cosopt Ocumeter Plus 2%-0.5% 10 Ml] Ezetimibe [Zetia] 10 mg PO QPM 01/01/17 10/27/17 Latanoprost 1 drop EACHEYE HS 01/01/17 10/27/17 Losartan [Cozaar] 50 mg PO DAILY 01/01/17 10/27/17 Lutein/Zeaxanthin 1 cap PO DAILY 01/01/17 10/27/17 [Lutein-Zeaxanthin 25-5 mg Sfgl] Ranitidine HCl [Heartburn Relief] 150 mg PO DAILY 01/01/17 10/27/17 ALPRAZolam [Xanax] 0.25 mg PO DAILY PRN 01/09/17 10/27/17 Review of Systems - Physician Review All systems were reviewed & negative as marked: Yes - Review of Systems Musculoskeletal: Other (right back shoulder blade pain, worsens with movement) Neurological: absent: Other (no numbness in right arm) Physical Exam Vital Signs Reviewed: Yes Vital Signs Temp Pulse Resp BP Pulse Ox 10/27/17 12:42 55 L 16 133/68 99 10/27/17 10:30 58 L 18 138/77 99 10/27/17 07:30 97.5 F L 60 18 141/86 100 Temperature: Afebrile Blood Pressure: Normal Pulse: Regular Respiratory Rate: Normal Appearance: Positive for: Well-Appearing Pain Distress: None Mental Status: Positive for: Alert and Oriented X 3 - Systems Exam Respiratory/Chest: Present: Clear to Auscultation, Good Air Exchange. No: Respiratory Distress, Accessory Muscle Use Cardiovascular: Present: Regular Rate and Rhythm, Normal S1, S2. No: Murmurs Abdomen: Present: Normal Bowel Sounds. No: Tenderness, Distention, Peritoneal Signs Upper Extremity: Present: Tenderness (tenderness to right shoulder on back side , worsens with movement), Other (right shoulder tense mucles palpable) Medical Decision Making ED Course and Treatment: 10/27/17 08:04 Impression: 76 year old male with right back side shoulder blade pain. Physical exam shows right shoulder back side tenderness, worsens with movement, and palpable tense muscle. Differential Diagnosis included but are not limited to: Muscle Strain Plan: -- Tylenol -- Flexeril -- Lidoderm -- Reassess and disposition Prior Visits: Notes and results from previous visits were reviewed. Patient was last seen in the emergency department on 10/02/2017 for subjective fever and nausea. Patient was admitted. Progress Notes: 10/27/17 10:37 Patient currently still experiencing pain so Valium was given. Examination remains unchanged. Patient's arrived and was at bedside. Patient and state he's not allergic to Toradol and that the last time he had this they gave it to him and he had no allergic reaction; despite that he received a rash from ibuprofen. 10/28/17 13:55 On reevaluation, patient felt much better. He was advised to follow up with his primary care doctor and to make sure he gets the physical therapy he was prescribed for this. Rx Valium prescribed. Advised him not to take it with any other sedative medications like the xanax he used to take. - Medication Orders Current Medication Orders: Discontinued Medications Acetaminophen (Tylenol 325mg Tab) 975 mg PO STAT STA Stop: 10/27/17 08:06 Last Admin: 10/27/17 08:18 Dose: 975 mg MAR Pain/Vitals Document 10/27/17 08:18 NAFISA (Rec: 10/27/17 08:18 NAFISA [id number]) Pain Reassessment Is This A Pain ReAssessment? No Sleep Is patient sleeping during reassessment? No Presence of Pain Presence of Pain Yes Re-Assess: [facility] Pain/Vitals Document 10/27/17 09:18 NAFISA (Rec: 10/27/17 12:43 NAFISA [id number]) Pain Reassessment Is This A Pain ReAssessment? Yes Sleep Is patient sleeping during reassessment? No Presence of Pain Presence of Pain Yes Location Intensity 6 Scale Used Numeric Cyclobenzaprine HCl (Flexeril) 10 mg PO STAT STA Stop: 10/27/17 08:05 Last Admin: 10/27/17 08:18 Dose: 10 mg Diazepam (Valium) 5 mg PO STAT STA PRN Reason: Protocol Stop: 10/27/17 10:34 Last Admin: 10/27/17 10:45 Dose: 5 mg Ketorolac Tromethamine (Toradol) 30 mg IM STAT STA Stop: 10/27/17 12:49 Lidocaine (Lidoderm) 1 ea TD STAT STA Stop: 10/27/17 08:05 Last Admin: 10/27/17 08:18 Dose: 1 ea MAR Transdermal Patch Site Document 10/27/17 08:18 NAFISA (Rec: 10/27/17 08:18 CAMRONA [id number]) Transdermal Patch Site Transdermal Patch Site Right Shoulder - Scribe Statement The provider has reviewed the documentation as recorded by the Andrzej Verde Provider Scribe Attestation: All medical record entries made by the Scribe were at my direction and personally dictated by me. I have reviewed the chart and agree that the record accurately reflects my personal performance of the history, physical exam, medical decision making, and the department course for this patient. I have also personally directed, reviewed, and agree with the discharge instructions and disposition. Disposition/Present on Arrival - Present on Arrival Any Indicators Present on Arrival: No History of DVT/PE: No History of Uncontrolled Diabetes: No Urinary Catheter: No History of Decub. Ulcer: No History Surgical Site Infection Following: None - Disposition Have Diagnosis and Disposition been Completed?: Yes Diagnosis: Back strain Disposition: HOME/ ROUTINE Disposition Time: 14:07 Patient Plan: Discharge Condition: IMPROVED Discharge Instructions (ExitCare): Thoracic Back Strain (ED) Additional Instructions: Ms Lombardo, thank you for letting us take care of you today. Your provider was Dr. Crawford. You were treated for Back Strain. The emergency medical care you received today was directed at your acute symptoms. If you were prescribed any medication, please fill it and take as directed. It may take several days for your symptoms to resolve. Return to the Emergency Department if your symptoms worsen, do not improve, or if you have any other problems. Please contact your doctor or call one of the physicians/clinics you have been referred to that are listed on the Patient Visit Information form that is included in your discharge packet. Bring any paperwork you were given at discharge with you along with any medications you are taking to your follow up visit. Our treatment cannot replace ongoing medical care by a primary care provider (PCP) outside of the emergency department. Thank you for allowing the [facility] team to be part of your care today. If you had an X-Ray or CT scan: A Radiologist will review the ED reading if any change in treatment is needed we will contact you. If you had a blood, urine, or wound culture: It will take several days for the results, if any change in treatment is needed we will contact you. If you had an STI test: It will take 48 hours for the results. Please call after 1 week if you have not heard back. Prescriptions: Acetaminophen [Tylenol 325mg tab] 650 mg PO Q4 #60 tab diaZEpam [Valium] 5 mg PO Q8 #12 tab Lidocaine 5% [Lidoderm] 1 ea TD DAILY PRN #4 patch PRN Reason: Pain, Moderate (4-7) Referrals: Gomez Gamboa MD [Primary Care Provider] - Follow up with primary Forms: [employer] (German)
[2017-10-27 12:42] VITALS: O2SAT 99
[2017-10-27 12:43] VITALS: BP 133/68; PULSE 55; RESP 16
== END 2017-10-27 14:07 | disposition home or self-care (01) ==
LOC: ED 07:11
DX: S29.012A Strain of muscle and tendon of back wall of thorax, initial encounter (principal); X58.XXXA Exposure to other specified factors, initial encounter; I10 Essential (primary) hypertension; E11.9 Type 2 diabetes mellitus without complications

== ENCOUNTER 2017-11-17 21:51 | Emergency (ER) | payer MEDICARE, OTHER ==
--- NOTE | 2017-11-17 21:57 | ED PDOC ---
Arrival/HPI - General Time Seen by Provider: 11/17/17 21:54 Historian: Patient - History of Present Illness Narrative History of Present Illness (Text): 11/17/17 21:50 Yusef Montes is a 76 year old male, whose past medical history includes hypertension and diabetes, who presents to the emergency department complaining of numbness in his left arm since prior to arrival. Patient reports he was sitting at home looking through facebook when he developed this symptom along with anxiety. He notes losing two family members one day ago. Patient denies chest pain, shortness of breath, headache, nausea, vomiting, or other complaints. Time/Duration: Prior to Arrival Symptom Onset: Sudden Symptom Course: Unchanged Activities at Onset: Rest Context: Home Past Medical History - Provider Review Nursing Documentation Reviewed: Yes - Infectious Disease Hx of Infectious Diseases: None - Tetanus Immunization Tetanus Immunization: Unknown - Cardiac Hx Hypertension: Yes - Pulmonary Hx Respiratory Disorders: No - Neurological Hx Neurological Disorder: No - HEENT Hx Cataracts: Yes Hx Macular Degeneration: Yes - Renal Hx Kidney Stones: Yes - Endocrine/Metabolic Hx Diabetes Mellitus Type 2: Yes - Hematological/Oncological Hx Blood Disorders: No - Integumentary Hx Dermatological Disorder: No - Musculoskeletal/Rheumatological Hx Musculoskeletal Disorders: Yes - Gastrointestinal Hx Gastrointestinal Disorders: No - Genitourinary/Gynecological Hx Genitourinary Disorders: No - Psychiatric Hx Psychophysiologic Disorder: No Hx Substance Use: No - Past Surgical History Past Surgical History: Non-Contributing - Surgical History Hx Appendectomy: Yes Other/Comment: eye laser surgery. hand surgery - Anesthesia Hx Anesthesia: Yes Hx Anesthesia Reactions: No Hx Malignant Hyperthermia: No - Suicidal Assessment Feels Threatened In Home Enviroment: No Family/Social History - Physician Review Nursing Documentation Reviewed: Yes Family/Social History: Unknown Family HX Smoking Status: Never Smoked Hx Alcohol Use: No Hx Substance Use: No Hx Substance Use Treatment: No Allergies/Home Meds Allergies/Adverse Reactions: Allergies ciprofloxacin [From Cipro] Allergy (Verified 11/17/17 22:00) RASH ciprofloxacin HCl [From Cipro] Allergy (Verified 11/17/17 22:00) RASH ibuprofen Allergy (Verified 11/17/17 22:00) RASH Penicillins Allergy (Verified 11/17/17 22:00) RASH Home Medications: Home Meds Medication Instructions Recorded Confirmed Atorvastatin [Lipitor] 40 mg PO QPM 01/01/17 11/17/17 Ezetimibe [Zetia] 10 mg PO QPM 01/01/17 11/17/17 Latanoprost 1 drop EACHEYE HS 01/01/17 11/17/17 Losartan [Cozaar] 50 mg PO DAILY 01/01/17 11/17/17 Lutein/Zeaxanthin 1 cap PO DAILY 01/01/17 11/17/17 [Lutein-Zeaxanthin 25-5 mg Sfgl] Ranitidine HCl [Heartburn Relief] 150 mg PO DAILY 01/01/17 11/17/17 ALPRAZolam HALF TABLET [Xanax HALF 0 mg PO DAILY 11/17/17 11/17/17 TABLET] Aspirin [Ecotrin] 0 mg PO DAILY 11/17/17 11/17/17 Vitamin E 0 unit PO DAILY 11/17/17 11/17/17 Review of Systems - Review of Systems Constitutional: absent: Fevers Eyes: absent: Vision Changes Respiratory: absent: SOB Cardiovascular: absent: Chest Pain Gastrointestinal: absent: Abdominal Pain, Vomiting Genitourinary Male: absent: Dysuria Musculoskeletal: absent: Back Pain Neurological: Other (numbness in left arm). absent: Headache Endocrine: absent: Diaphoresis Psychiatric: Anxiety Physical Exam Vital Signs Reviewed: Yes Vital Signs Temp Pulse Resp BP Pulse Ox 11/18/17 00:25 57 L 16 128/84 97 11/17/17 22:41 60 18 137/78 100 11/17/17 22:01 97.7 F 65 16 141/75 99 Temperature: Afebrile Blood Pressure: Normal Pulse: Regular Respiratory Rate: Normal Appearance: Positive for: Well-Appearing, Non-Toxic, Comfortable Pain Distress: None Mental Status: Positive for: Alert and Oriented X 3 - Systems Exam Head: Present: Atraumatic, Normocephalic Pupils: Present: PERRL Extroacular Muscles: Present: EOMI Conjunctiva: Present: Normal Mouth: Present: Moist Mucous Membranes Neck: Present: Normal Range of Motion Respiratory/Chest: Present: Clear to Auscultation, Good Air Exchange. No: Respiratory Distress, Accessory Muscle Use Cardiovascular: Present: Regular Rate and Rhythm, Normal S1, S2. No: Murmurs Abdomen: Present: Normal Bowel Sounds. No: Tenderness, Distention, Peritoneal Signs Upper Extremity: Present: Normal Inspection, Normal ROM, NORMAL PULSES, Neurovascularly Intact, Capillary Refill < 2s. No: Cyanosis, Edema, Tenderness , Swelling, Erythema Lower Extremity: Present: Normal Inspection, NORMAL PULSES, Normal ROM, Neurovascularly Intact, Capillary Refill < 2 s. No: Edema, Cyanosis, Yari's Sign, Tenderness, Swelling, Erythema, Deformity Neurological: Present: GCS=15, CN II-XII Intact, Speech Normal Skin: Present: Warm, Dry, Normal Color. No: Rashes Psychiatric: Present: Alert, Oriented x 3, Normal Insight, Normal Concentration , Anxious Medical Decision Making ED Course and Treatment: 11/17/17 Impression: 76 year old male with anxiousness who is complaining of numbness in left arm. Plan: -- CT Head -- EKG -- Chest X-ray -- Labs -- Reassess and disposition Progress Notes: 11/18/17 01:00 CT Head: FINDINGS: There is atrophy. There is chronic small vessel ischemic disease. There is no hemorrhage or edema. There is opacification of the right maxillary sinus. It could be chronic or alternatively represent acute sinusitis. Clinical correlation is recommended. The osseous structures are normal. IMPRESSION: No acute intracranial findings. Sinus disease incompletely evaluated. 11/18/17 01:14 Reevaluation: On reevaluation the patient feels better and is in no acute distress. I have discussed the results and plan with the patient, who expresses understanding. Patient given the opportunity to ask question, all questions were answered and there is agreement with the plan to discharge the patient home. Patient is stable for discharge. Patient was instructed to follow up with physician/clinic in 1-2 days or return if symptoms persist/worsen or new concerning symptoms arise. Reassessment Condition: Re-examined, Improved - Lab Interpretations Lab Results: 11/17/17 22:16 11/17/17 22:16 Lab Results 11/17/17 22:16: Sodium 140, Potassium 4.2, Chloride 107, Carbon Dioxide 24, Anion Gap 13, BUN 20, Creatinine 1.1, Est GFR ( Amer) > 60, Est GFR (Non- Af Amer) > 60, Random Glucose 129 H, Calcium 9.9, Total Bilirubin 0.4, AST 24, ALT 35, Alkaline Phosphatase 33 L, Troponin I < 0.01, Total Protein 6.4, Albumin 3.8, Globulin 2.5, Albumin/Globulin Ratio 1.5, Triglycerides 111, Cholesterol 128 L, LDL Cholesterol Direct 50, HDL Cholesterol 61 H 11/17/17 22:16: PT 10.8, INR 0.95, APTT 30.8 11/17/17 22:16: WBC 6.1, RBC 4.91, Hgb 12.8 L, Hct 40.6 L, MCV 82.7, MCH 26.1, MCHC 31.5, RDW 15.7 H, Plt Count 185, MPV 10.0, Gran % 35.1 L, Lymph % (Auto) 51.5 H, [place] % (Auto) 11.1 H, Eos % (Auto) 2.0, Baso % (Auto) 0.3, Gran # 2.15, Lymph # (Auto) 3.2, [place] # (Auto) 0.7 H, Eos # (Auto) 0.1, Baso # (Auto) 0.02 11/17/17 21:58: POC Glucose (mg/dL) 124 H I have reviewed the lab results: Yes - RAD Interpretation Radiology Orders: 11/17/17 22:07 HEAD W/O CONTRAST [CT] Stat CHEST PORTABLE [RAD] Stat Director Of Engineering: Radiologist - EKG Interpretation Interpreted by ED Physician: Yes Type: 12 lead EKG (nsr rate63 snsts changes) - Medication Orders Current Medication Orders: Discontinued Medications Alprazolam (Xanax) 0.25 mg PO STAT STA PRN Reason: Protocol Stop: 11/17/17 23:26 Last Admin: 11/17/17 23:37 Dose: 0.25 mg Clarithromycin (Biaxin Filmtab) 500 mg PO STAT STA PRN Reason: Protocol Stop: 11/18/17 01:08 Last Admin: 11/18/17 01:22 Dose: 500 mg NIHSS Scale ([place]) Time Performed: 22:00 - How Severe is the Stoke Baseline Level of Consciousness: 0=Alert LOC to Questions: 0=Both comments correct LOC to commands: 0=Obeys both correctly Best Gaze: 0=Normal Visual: 0=No visual loss Facial: 0=Normal Motor Arm - Left: 0=No drift Motor Arm - Right: 0=No drift Motor Leg - Left: 0=No drift Motor Leg - Right: 0=No drift Limb Ataxia: 0=Absent Sensory: 0=Normal Best Language: 0=No aphasia Dysarthia: 0=Normal articulation Extinction & Inattention (Neglect): 0=Normal, no object Score: 0 Risk Level: No Stroke Risk - Scribe Statement The provider has reviewed the documentation as recorded by the Andrzej Scanlon Provider Scribe Attestation: All medical record entries made by the Scribe were at my direction and personally dictated by me. I have reviewed the chart and agree that the record accurately reflects my personal performance of the history, physical exam, medical decision making, and the department course for this patient. I have also personally directed, reviewed, and agree with the discharge instructions and disposition. Disposition/Present on Arrival - Present on Arrival Any Indicators Present on Arrival: No History of DVT/PE: No History of Uncontrolled Diabetes: No Urinary Catheter: No History Surgical Site Infection Following: None - Disposition Have Diagnosis and Disposition been Completed?: Yes Diagnosis: Anxiety Disposition: HOME/ ROUTINE Disposition Time: 01:15 Condition: GOOD Discharge Instructions (ExitCare): Anxiety (ED) Prescriptions: Clarithromycin [Biaxin Filmtab] 500 mg PO BID #20 tab Fluticasone Nasal [Flonase] 2 actuation NS DAILY #1 spr Fluticasone Nasal [Flonase] 2 actuation NS DAILY #1 spr Alprazolam [Xanax] 0.25 mg PO ONCE #8 tab Referrals: Gomez Gamboa MD [Primary Care Provider] - Follow up with primary Forms: [employer] (Greek)
[2017-11-17 22:21] VITALS: TEMP 97.7; BMI 31.3
[2017-11-17 22:37] LABS: ALB/GLOB RATIO 1.5 (1.1-1.8); ALBUMIN 3.8 g/dL (3.0-4.8); ALT/SGPT 35 U/L (7-56); AST/SGOT 24 U/L (17-59); BLOOD UREA NITROGEN 20 mg/dL (7-21); CALCIUM 9.9 mg/dL (8.4-10.5); GFR AFRICAN-AMERICAN > 60; GFR NON-AFRICAN AMERICAN > 60; HDL CHOLESTEROL 61 mg/dL (29-60)
[2017-11-17 22:42] LABS: BASO # 0.02 K/mm3 (0.0-2.0); BASO % 0.3 % (0.0-3.0); EOS # 0.1 (0.0-0.7); GRAN # 2.15 (1.4-6.5); GRAN % 35.1 % (50.0-68.0); HEMOGLOBIN 12.8 g/dL (14.0-18.0); LYMPH # 3.2 (1.2-3.4); LYMPH % 51.5 % (22.0-35.0); MEAN CELL VOLUME 82.7 fl (80.0-105.0); MEAN CORPUSCULAR HEMOGLOBIN 26.1 pg (25.0-35.0); MEAN CORPUSCULAR HGB CONC 31.5 g/dl (31.0-37.0); MONO # 0.7 (0.1-0.6); MONO % 11.1 % (1.0-6.0); RBC 4.91 10^6/uL (3.5-6.1); RED CELL DISTRIBUTION WIDTH 15.7 % (11.5-14.5); WHITE BLOOD COUNT 6.1 10^3/ul (4.5-11.0)
[2017-11-17 22:47] LABS: LDL CHOLESTEROL 50 mg/dL (0-129)
[2017-11-17 22:48] LABS: TROPONIN I < 0.01 ng/mL
[2017-11-17 22:50] LABS: INR 0.95 (0.93-1.08); PARTIAL THROMBOPLASTIN TIME 30.8 Seconds (25.1-36.5); PROTHROMBIN TIME 10.8 SECONDS (9.4-12.5)
[2017-11-18 00:40] VITALS: BP 128/84; PULSE 57; RESP 16; O2SAT 97
--- NOTE | 2017-11-18 01:00 | CT ---
EXAM: CT Head Without Intravenous Contrast EXAM DATE/TIME: 11/17/2017 10:07 PM CLINICAL HISTORY: 76 years old, male; Signs and symptoms; Numbness / parasthesia; Additional info: Left arm numbness TECHNIQUE: Axial computed tomography images of the head/brain without intravenous contrast. All CT scans at this facility use one or more dose reduction techniques, viz.: automated exposure control; ma/kV adjustment per patient size (including targeted exams where dose is matched to indication; i.e. head); or iterative reconstruction technique. Coronal and sagittal reformatted images were created and reviewed. COMPARISON: No relevant prior studies available. FINDINGS: There is atrophy. There is chronic small vessel ischemic disease. There is no hemorrhage or edema. There is opacification of the right maxillary sinus. It could be chronic or alternatively represent acute sinusitis. Clinical correlation is recommended. The osseous structures are normal. IMPRESSION: No acute intracranial findings. Sinus disease incompletely evaluated.
--- NOTE | 2017-11-18 10:31 | RAD ---
HISTORY: tia COMPARISON: 10/02/2017 FINDINGS: LUNGS: No active pulmonary disease. PLEURA: No significant pleural effusion identified, no pneumothorax apparent. CARDIOVASCULAR: Mild cardiomegaly OSSEOUS STRUCTURES: No significant abnormalities. VISUALIZED UPPER ABDOMEN: Normal. OTHER FINDINGS: None. IMPRESSION: No active disease.
--- NOTE | 2017-11-18 13:04 | CARD ---
APPROVED REPORT EKG Measurement Heart [id number] ND 160P14 [id number] <Conclusion> Normal sinus rhythm Left axis deviation Incomplete right bundle branch block Abnormal ECG
== END 2017-11-18 01:26 | disposition home or self-care (01) ==
LOC: ED 21:51
DX: F41.9 Anxiety disorder, unspecified (principal); I10 Essential (primary) hypertension; E11.9 Type 2 diabetes mellitus without complications

== ENCOUNTER 2018-02-26 06:50 | Day surgery (SDC) | payer MEDICARE, OTHER ==
[2018-02-26 07:17] VITALS: BMI 31.3
[2018-02-26] MEDS ORDERED: Propofol 10 mg/ml Inj (20 ML) ONE (09:53)
[2018-02-26] MEDS ORDERED: Sodium Chloride 0.9% 1,000 ML IV SCH (10:30)
[2018-02-26 10:31] VITALS: O2SAT 99
[2018-02-26 11:00] VITALS: BP 112/71; RESP 18; TEMP 97.8
[2018-02-26 11:35] VITALS: PULSE 56
== END 2018-02-26 11:48 | disposition home or self-care (01) ==
LOC: ENDO 06:50
PROVIDERS: ATTEND Internal Medicine Gastroenterology
DX: K29.50 Unspecified chronic gastritis without bleeding (principal); K31.9 Disease of stomach and duodenum, unspecified; K21.9 Gastro-esophageal reflux disease without esophagitis; I10 Essential (primary) hypertension; E11.9 Type 2 diabetes mellitus without complications; E78.00 Pure hypercholesterolemia, unspecified; H35.30 Unspecified macular degeneration
CPT/HCPCS: 43239; 88305; 88342; J2001; J2704; J7040 ×2

== ENCOUNTER 2018-07-05 09:10 | Observation (INO) | payer MEDICARE, OTHER ==
--- NOTE | 2018-07-05 09:19 | ED PDOC ---
Arrival/HPI - General Time Seen by Provider: 07/05/18 09:14 Historian: Patient - History of Present Illness Narrative History of Present Illness (Text): 07/05/18 09:16 77 y/o male, pmh including htn/hld/TIA, previous smoker, drug allergic to fluoroquinolones/penicillin/IV dye, c/o epigastric pressure and dizziness x 1 hour. Pt. stated that she had epigastric pressure after having breakfast, progress into chest pressure, associated with dizziness, very short episode and not sure of time length, stated that he never feel this way before, no shortness of breath, no numbness/tingling/change in vision, no night sweat, no rash, no other medical or psychological complaints. Past Medical History - Provider Review Nursing Documentation Reviewed: Yes - Infectious Disease Hx of Infectious Diseases: None - Tetanus Immunization Tetanus Immunization: Unknown - Cardiac Hx Pacemaker: No - Pulmonary Hx Respiratory Disorders: No - Neurological Hx Paralysis: No - HEENT Hx Cataracts: Yes Hx Macular Degeneration: Yes - Renal Hx Kidney Stones: Yes - Endocrine/Metabolic Hx Diabetes Mellitus Type 2: Yes - Hematological/Oncological Hx Blood Transfusions: No - Integumentary Hx Dermatological Disorder: No - Musculoskeletal/Rheumatological Hx Musculoskeletal Disorders: Yes - Gastrointestinal Hx Gastrointestinal Disorders: No - Genitourinary/Gynecological Hx Genitourinary Disorders: No - Psychiatric Hx Emotional Abuse: No Hx Physical Abuse: No Hx Substance Use: No - Past Surgical History Past Surgical History: Non-Contributing - Surgical History Hx Appendectomy: Yes Other/Comment: eye laser surgery. hand surgery - Anesthesia Hx Anesthesia Reactions: No Hx Malignant Hyperthermia: No - Suicidal Assessment Feels Threatened In Home Enviroment: No Family/Social History - Physician Review Nursing Documentation Reviewed: Yes Family/Social History: Unknown Family HX Smoking Status: Never Smoked Hx Alcohol Use: No Hx Substance Use: No Hx Substance Use Treatment: No Allergies/Home Meds Allergies/Adverse Reactions: Allergies ciprofloxacin [From Cipro] Allergy (Verified 11/17/17 22:00) RASH ciprofloxacin HCl [From Cipro] Allergy (Verified 11/17/17 22:00) RASH ibuprofen Allergy (Verified 11/17/17 22:00) RASH Penicillins Allergy (Verified 11/17/17 22:00) RASH IV DYE Allergy (Severe, Uncoded 02/18/18 11:12) SWELLING Home Medications: Home Meds Medication Instructions Recorded Confirmed Atorvastatin [Lipitor] 40 mg PO QPM 01/01/17 02/26/18 Ezetimibe [Zetia] 10 mg PO QPM 01/01/17 02/26/18 Latanoprost 1 drop EACHEYE HS 01/01/17 02/26/18 Losartan [Cozaar] 50 mg PO DAILY 01/01/17 02/26/18 Lutein/Zeaxanthin 1 cap PO DAILY 01/01/17 02/26/18 [Lutein-Zeaxanthin 25-5 mg Sfgl] Ranitidine HCl [Heartburn Relief] 150 mg PO DAILY 01/01/17 02/26/18 Aspirin [Ecotrin] 81 mg PO DAILY 11/17/17 02/26/18 Vitamin E 400 unit PO DAILY 11/17/17 02/26/18 Alprazolam [Xanax] 0.25 mg PO HS 02/18/18 02/26/18 Ascorbic Acid [Vitamin C] 500 mg PO DAILY 02/18/18 02/26/18 Cholecalciferol [Vitamin D] 1,000 iu PO DAILY 02/18/18 02/26/18 Fluticasone Nasal [Flonase] 2 actuation NS DAILY PRN 02/18/18 02/26/18 Ubidecarenone/Vitamin E Mixed 1 cap PO DAILY 02/18/18 02/26/18 [[id number] E 200 mg-20 Unit Sfg] diaZEpam [Valium] 5 mg PO Q8 PRN 02/18/18 02/26/18 Review of Systems - Review of Systems Constitutional: absent: Fatigue, Fevers Eyes: absent: Vision Changes ENT: absent: Hearing Changes Respiratory: absent: SOB, Cough Cardiovascular: Other (+chest prerssure). absent: Chest Pain Gastrointestinal: Other (+epigastric pressure). absent: Abdominal Pain, Diarrhea, Nausea, Vomiting Musculoskeletal: absent: Arthralgias, Back Pain Skin: absent: Rash, Pruritis Psychiatric: absent: Anxiety, Depression, Suicidal Ideation Physical Exam Vital Signs Reviewed: Yes Vital Signs Temp Pulse Resp BP Pulse Ox 07/05/18 11:10 54 L 18 123/72 99 07/05/18 09:30 98.1 F 73 16 142/76 100 07/05/18 09:26 98.1 F 73 16 142/76 100 Temperature: Afebrile Blood Pressure: Normal Pulse: Regular Respiratory Rate: Normal Appearance: Positive for: Well-Appearing, Non-Toxic, Comfortable Pain Distress: Mild Mental Status: Positive for: Alert and Oriented X 3 - Systems Exam Head: Present: Atraumatic, Normocephalic Pupils: Present: PERRL Extroacular Muscles: Present: EOMI Conjunctiva: Present: Normal Mouth: Present: Moist Mucous Membranes Neck: Present: Normal Range of Motion Respiratory/Chest: Present: Clear to Auscultation, Good Air Exchange. No: Respiratory Distress, Accessory Muscle Use Cardiovascular: Present: Regular Rate and Rhythm, Normal S1, S2. No: Murmurs Abdomen: No: Tenderness, Distention, Peritoneal Signs, Rebound, Guarding Back: Present: Normal Inspection Upper Extremity: Present: Normal Inspection. No: Cyanosis, Edema Lower Extremity: Present: Normal Inspection. No: Edema Neurological: Present: GCS=15, CN II-XII Intact, Speech Normal, Motor Func Grossly Intact, Gait Normal, Memory Normal Skin: Present: Warm, Dry, Normal Color. No: Rashes Psychiatric: Present: Alert, Oriented x 3, Normal Insight, Normal Concentration Medical Decision Making ED Course and Treatment: 07/05/18 09:18 -labs/ua -ekg -cxr -IVF/aspirin (pt. takes aspirin at home)/pepcid/oxygen 2L -gas plumbing inspector -Observe and reassess 07/05/18 11:18 -HEART score is 5 -EKG: NSR @ 67 BPM, RBBB, no ST elevation or depression, no T wave inversion, compared with previous ekg -Chest xray show No active disease. -Labs show no acute findings -Trop 1st set is negative -UA show +UTI, IV meropenem ordered. -Pt. feels that the chest pressure is going to the lt. arm now, nitro ordered, repeat ekg order 07/05/18 11:21 -I spoke to the hospitalist Dr. Clark, Dr. Gamboa doesn't admit here anymore, discussed about the case/labs/radiology result, agreed to admit and continue the care with following up any pending labs/radiology results. 07/05/18 11:31 -repeat EKG: Sinus Bradycardia @ 55 BPM, no ST elevation or depression, no T wave inversion, compared with previous ekg -Dr. Corley, truck driver instructor, he is in the ER, discussed about the case/labs/ radiology and reviewed the old stress test from 11/2016 with him, he will consult on this case as he is the patient's private truck driver instructor. - Lab Interpretations Lab Results: 07/05/18 10:16 07/05/18 10:30 Lab Results 07/05/18 10:38: POC Glucose (mg/dL) 146 H 07/05/18 10:30: Sodium 139, Potassium 3.9, Chloride 107, Carbon Dioxide 26, Anion Gap 11, BUN 15, Creatinine 1.0, Est GFR ( Amer) > 60, Est GFR (Non- Af Amer) > 60, Random Glucose 140 H, Calcium 8.8, Magnesium 2.1, Total Bilirubin 0.4, AST 34, ALT 30, Alkaline Phosphatase 43, Lactate Dehydrogenase 473, Total Creatine Kinase 130, Troponin I < 0.01, NT-Pro-B Natriuret Pep 35.3, Total Protein 6.2, Albumin 3.7, Globulin 2.5, Albumin/Globulin Ratio 1.5, Lipase 109 07/05/18 10:16: Urine Color Yellow, Urine Appearance Clear, Urine pH 6.0, Ur Specific [place] 1.025, Urine Protein Trace H, Urine Glucose (UA) 100 H, Urine Ketones Negative, Urine Blood Negative, Urine Nitrate Negative, Urine Bilirubin Negative, Urine Urobilinogen 0.2, Ur Leukocyte Esterase Trace H, Urine RBC Negative, Urine WBC 5 - 10, Urine Bacteria Few 07/05/18 10:16: WBC 5.5 D, RBC 4.60, Hgb 11.7 L, Hct 37.1 L, MCV 80.7, MCH 25.4 , MCHC 31.5, RDW 16.6 H, Plt Count 200, MPV 10.1, Gran % 53.5, Lymph % (Auto) 38.0 H, Glenn % (Auto) 6.2 H, Eos % (Auto) 1.7, Baso % (Auto) 0.6, Gran # 2.92, Lymph # (Auto) 2.1, Glenn # (Auto) 0.3, Eos # (Auto) 0.1, Baso # (Auto) 0.03 I have reviewed the lab results: Yes - RAD Interpretation Radiology Orders: 07/05/18 09:32 CHEST PORTABLE [RAD] Stat Date of service: 07/05/2018 HISTORY: chest pressure COMPARISON: 11/17/2017 FINDINGS: LUNGS: No active pulmonary disease. PLEURA: No significant pleural effusion identified, no pneumothorax apparent. CARDIOVASCULAR: Normal. OSSEOUS STRUCTURES: No significant abnormalities. VISUALIZED UPPER ABDOMEN: Normal. OTHER FINDINGS: None. IMPRESSION: No active disease. Sap Pi Architect: Radiologist - EKG Interpretation EKG Interpretation (Text): 07/05/18 09:20 EKG: NSR @ 67 BPM, RBBB, no ST elevation or depression, no T wave inversion, compared with previous ekg 07/05/18 11:32 -repeat EKG: Sinus Bradycardia @ 55 BPM, no ST elevation or depression, no T wave inversion, compared with previous ekg Interpreted by ED Physician: Yes Type: 12 lead EKG Comparison: Com.w/previous EKG - Medication Orders Current Medication Orders: Sodium Chloride (Sodium Chloride 0.9%) 1,000 mls @ 75 mls/hr IV .[id number] JACOB Last Admin: 07/05/18 09:58 Dose: 75 mls/hr eMAR Start Stop Document 07/05/18 09:58 EMERGENCY DEPARTMENT PHYSICIAN (Rec: 07/05/18 09:58 EMERGENCY DEPARTMENT PHYSICIAN [id number]) Intravenous Solution Start Date 07/05/18 Start Time 09:58 Discontinued Medications Aspirin (Aspirin) 325 mg PO STAT STA Stop: 07/05/18 09:33 Last Admin: 07/05/18 09:59 Dose: 325 mg Meropenem (Merrem Iv 1 Gm Premix) 50 mls @ 100 mls/hr IVPB STAT STA PRN Reason: Protocol Stop: 07/05/18 11:27 Last Admin: 07/05/18 11:10 Dose: 100 mls/hr eMAR Start Stop Document 07/05/18 11:10 EMERGENCY DEPARTMENT PHYSICIAN (Rec: 07/05/18 11:17 EMERGENCY DEPARTMENT PHYSICIAN [id number]) Intravenous Solution Start Date 07/05/18 Start Time 11:17 Nitroglycerin (Nitrostat Sl Tab) 0.3 mg SL STAT STA Stop: 07/05/18 11:15 - PA / JEWEL SORTER / Resident Statement /DO has reviewed & agrees with the documentation as recorded. Disposition/Present on Arrival - Present on Arrival Any Indicators Present on Arrival: No History of DVT/PE: No History of Uncontrolled Diabetes: No Urinary Catheter: No History of Decub. Ulcer: No History Surgical Site Infection Following: None - Disposition Have Diagnosis and Disposition been Completed?: Yes Diagnosis: Chest pain, UTI (urinary tract infection) Disposition: HOSPITALIZED Disposition Time: 11:19 Patient Plan: Admission, Observation, Telemetry Patient Problems: Current Active Problems Problem Status Onset Chest pain Acute UTI (urinary tract infection) Acute Condition: STABLE Discharge Instructions (ExitCare): Chest Pain (ED) Referrals: Gomez Gamboa MD [Primary Care Provider] - Follow up with primary
[2018-07-05 09:32] VITALS: BMI 30.8
[2018-07-05] MEDS: Sodium Chloride 0.9% 1,000 ML IV SCH ×2 (09:58→23:15)
[2018-07-05 10:22] LABS: BASO # 0.03 K/mm3 (0.0-2.0); BASO % 0.6 % (0.0-3.0); EOS # 0.1 (0.0-0.7); EOS % 1.7 % (1.5-5.0); GRAN # 2.92 (1.4-6.5); GRAN % 53.5 % (50.0-68.0); HEMOGLOBIN 11.7 g/dL (14.0-18.0); LYMPH # 2.1 (1.2-3.4); MEAN CELL VOLUME 80.7 fl (80.0-105.0); MEAN CORPUSCULAR HEMOGLOBIN 25.4 pg (25.0-35.0); MEAN CORPUSCULAR HGB CONC 31.5 g/dl (31.0-37.0); MEAN PLATELET VOLUME 10.1 fl (7.0-11.0); MONO # 0.3 (0.1-0.6); MONO % 6.2 % (1.0-6.0); RBC 4.6 10^6/uL (3.5-6.1); RED CELL DISTRIBUTION WIDTH 16.6 % (11.5-14.5); WHITE BLOOD COUNT 5.5 10^3/ul (4.5-11.0)
[2018-07-05 10:23] LABS: URINE BILIRUBIN NEGATIVE (NEGATIVE); URINE BLOOD NEGATIVE (NEGATIVE); URINE GLUCOSE (UA) 100 mg/dL (NEGATIVE); URINE LEUKOCYTE ESTERASE TRACE Leu/uL (NEGATIVE); URINE PROTEIN TRACE mg/dL (<30 mg/dL); URINE UROBILINOGEN 0.2 E.U./dL (<1 E.U./dL)
[2018-07-05 10:24] LABS: URINE APPEARANCE CLEAR (CLEAR); URINE COLOR YELLOW (YELLOW)
[2018-07-05 10:41] LABS: URINE RBC NEGATIVE /hpf (0-2)
[2018-07-05 10:42] LABS: URINE BACTERIA FEW (NEG)
[2018-07-05 10:56] LABS: ALB/GLOB RATIO 1.5 (1.1-1.8); ALBUMIN 3.7 g/dL (3.0-4.8); ALT/SGPT 30 U/L (7-56); AST/SGOT 34 U/L (17-59); BLOOD UREA NITROGEN 15 mg/dL (7-21); CALCIUM 8.8 mg/dL (8.4-10.5); GFR NON-AFRICAN AMERICAN > 60; LIPASE 109 U/L (23-300)
[2018-07-05] MEDS ORDERED: Meropenem IV 1 gm in NS 50 ML IVPB STA (10:58)
--- NOTE | 2018-07-05 11:02 | RAD ---
Date of service: 07/05/2018 HISTORY: chest pressure COMPARISON: 11/17/2017 FINDINGS: LUNGS: No active pulmonary disease. PLEURA: No significant pleural effusion identified, no pneumothorax apparent. CARDIOVASCULAR: Normal. OSSEOUS STRUCTURES: No significant abnormalities. VISUALIZED UPPER ABDOMEN: Normal. OTHER FINDINGS: None. IMPRESSION: No active disease.
[2018-07-05 11:08] LABS: B-TYPE NATRIURETIC PEPTIDE 35.3 pg/mL (0-450); TROPONIN I < 0.01 ng/mL
--- NOTE | 2018-07-05 12:21 | CP.PCM.HP ---
<Ralph Barron - Last Filed: 07/05/18 12:28> History of Present Illness - History of Present Illness History of Present Illness: Ralph Barron DO, PGY-2: HPI for Dr. Eldridge 77 year old male with a past medical history of hypertension, nephrolithiasis, macular degeneration, dyslipidemia, DM II (not on medication), GERD with last endoscopy on 02/26/18, who presents to the ED for feeling "slow" and some epigastric discomfort he experienced when coming in for cardiac rehabilitation. He reports feeling well and attending cardiac rehabilitation but today when he was going there he felt a little slow and winded when walking to the cardiac rehabilitation. On arrival, the nurse there told him he looked pale and hence he was referred to the ED. He denies chest pain at the time of my examination, but admits to epigastric discomfort and associated shortness of breath. He denies radiation of the pain, diaphoresis, or symptoms of LE claudication. When asked why he goes to cardiac rehabilitation he states he was saw Dr. Keane for varicose veins and was recommended to try cardiac rehabilitation (for conservative therapy). He does have a carbonizer, Dr. Corley, andchart review indicates the patient underwent a stress test in 11/2017 that was negative. In the ED he was given 325 of aspirin, Merropenem for empiric treatment of a UTI, and fluids as the patient did appear dry. He is anxious appearing and his son was also present at bedside. He denies history of HI or heart failure. He reports [place] [facility] [place] diagnosed with a [place]IA. He denies fever, chills, nausea, vomiting, diarrhea, constipation, weakness or lethargy. Otherwise, 12 point ROS is negative. PMD: Dr. 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, lives with female medical screener, 18 years ago Present on Admission - Present on Admission Any Indicators Present on Admission: No Review of Systems - Review of Systems All systems: reviewed and no additional remarkable complaints except (as per HPI ) Past Patient History - Infectious Disease Hx of Infectious Diseases: None - Tetanus Immunizations Tetanus Immunization: Unknown - Past Social History Smoking Status: Never Smoked - CARDIAC Hx Pacemaker: No - PULMONARY Hx Respiratory Disorders: No - NEUROLOGICAL Hx Paralysis: No - HEENT Hx Cataracts: Yes Hx Macular Degeneration: Yes - RENAL Hx Kidney Stones: Yes - ENDOCRINE/METABOLIC Hx Diabetes Mellitus Type 2: Yes - HEMATOLOGICAL/ONCOLOGICAL Hx Blood Transfusions: No - INTEGUMENTARY Hx Dermatological Problems: No - MUSCULOSKELETAL/RHEUMATOLOGICAL Hx Musculoskeletal Disorders: Yes - GASTROINTESTINAL Hx Gastrointestinal Disorders: No - GENITOURINARY/GYNECOLOGICAL Hx Genitourinary Disorders: No - PSYCHIATRIC Hx Emotional Abuse: No Hx Physical Abuse: No Hx Substance Use: No - SURGICAL HISTORY Hx Appendectomy: Yes Other/Comment: eye laser surgery. hand surgery - ANESTHESIA Hx Anesthesia Reactions: No Hx Malignant Hyperthermia: No Meds Allergies/Adverse Reactions: Allergies Allergy/AdvReac Type Severity Reaction Status Date / Time ciprofloxacin [From Cipro] Allergy RASH Verified 11/17/17 22:00 ciprofloxacin HCl Allergy RASH Verified 11/17/17 22:00 [From Cipro] ibuprofen Allergy RASH Verified 11/17/17 22:00 Penicillins Allergy RASH Verified 11/17/17 22:00 IV DYE Allergy Severe SWELLING Uncoded 02/18/18 11:12 Physical Exam - Constitutional Appears: Other (anxious) - Head Exam Head Exam: ATRAUMATIC, NORMOCEPHALIC - Eye Exam Eye Exam: EOMI, Normal appearance - ENT Exam ENT Exam: Mucous Membranes Dry - Neck Exam Neck exam: Positive for: Normal Inspection - Respiratory Exam Respiratory Exam: Clear to Auscultation Bilateral, NORMAL BREATHING PATTERN. absent: Accessory Muscle Use - Cardiovascular Exam Cardiovascular Exam: RRR, +S1, +S2 - GI/Abdominal Exam GI & Abdominal Exam: Soft. absent: Distended, Rebound - Extremities Exam Extremities exam: Positive for: normal inspection. Negative for: calf tenderness - Back Exam Back exam: NORMAL INSPECTION - Neurological Exam Neurological exam: Alert, CN II-XII Intact, Oriented x3 - Psychiatric Exam Psychiatric exam: Anxious - Skin Skin Exam: Dry, Intact, Normal Color, Warm Results - Vital Signs Recent Vital Signs: Last Vital Signs Temp 98.1 F 07/05/18 09:30 Pulse 54 L 07/05/18 11:10 Resp 18 07/05/18 11:10 BP 123/72 07/05/18 11:10 Pulse Ox 99 07/05/18 11:10 - Labs Result Diagrams: 07/05/18 10:16 07/05/18 10:30 Assessment & Plan - Assessment and Plan (Free Text) Assessment: 77 year old with hypertension, dyslipidemia, DM II, nephrolithiasis, and GERD who presents with complaints of feeling funny today with epigastric discomfort and was referred to ED from cardiac rehabilitation for appearing pale. 1) Atypical chest pain, r/o ACS - EKG showed no active ischemia - Initial troponin (-), repeat x 2 - Consulted Dr. Corley - Continue aspirin 81 mg daily - Lipid panel, HgbA1c, and TSh ordered 2) UTI in a patient who is allergic to fluoroquinolones and penicillins - One dose of Meropenem given in the ED - Continue with Bactrim DS and await urine culture - Repeat UA also ordered - Follow up urine cultures 3) Hypertension in a diabetic - Losartan 50 mg PO daily 4) DM II - HgbA1c ordered - HHD (low carbohydrate) 5) Dyslipidemia - Continue home Atorvastatin 40 mg HS - Continue Fenofibrate 6) GERD - Continue home Ranitidine 7) Macular degeneration and glaucoma - Continue home medication 8) DVT Prophylaxis - Lovenox 40 mg SC Daily 9) Anxiety disorder, unspecified - restarted home Benzos PRN Case was reviewed and discussed with attending physician. - Date & Time Date: 07/05/18 Time: 12:40 <Dustin Eldridge - Last Filed: 07/07/18 15:51> Results - Vital Signs Recent Vital Signs: Last Vital Signs Temp 98 F 07/06/18 12:00 Pulse 58 L 07/06/18 12:00 Resp 18 07/06/18 12:00 BP 128/68 07/06/18 12:00 Pulse Ox 96 07/06/18 06:00 - Labs Result Diagrams: 07/06/18 07:00 07/06/18 06:30 Attending/Attestation - Attestation I have personally seen and examined this patient.: Yes I have fully participated in the care of the patient.: Yes I have reviewed all pertinent clinical information: Yes Notes (Text): 07/07/18 15:50 Attending note; Patient seen and examined with resident in ER. Patient is alert and awake. Complaining of lower chest epigastric discomfort. Denies any nausea, vomiting. patient is a 77 year old male with a past medical history of hypertension, nephrolithiasis, macular degeneration, dyslipidemia, DM II, GERD with last endoscopy on 02/26/18, who presents to the ED for lower chest and some epigastric discomfort he experienced when coming in for cardiac rehabilitation. Patient will be admitted to telemetry. Cardiac enzymes ordered. EKG showed no acute changes. Cardiology evaluation requested. Patient is started on PPI. Needs outpatient GI evaluation. Upon discharge the patient will follow up with PMD .
[2018-07-05 13:22] LABS: HDL CHOLESTEROL 54 mg/dL (29-60)
[2018-07-05 13:33] LABS: LDL CHOLESTEROL 52 mg/dL (0-129)
[2018-07-05 13:36] LABS: TROPONIN I < 0.01 ng/mL
--- NOTE | 2018-07-05 16:57 | CON ---
DATE: 07/05/2018 HISTORY OF PRESENT ILLNESS: The patient, 77-year-old male, known case of diabetes, controlled by diet; history of hypertension; dyslipidemia. The patient also has a history of GERD. Admitted with a history that he has bloating of the stomach and he felt slightly dizzy and also he has a short period when his left arm was numb, but denies any chest pain, denies any shortness of breath. He states he exercises regularly without any chest pain associated with exercise. The last time he did exercise was Thursday. The patient is now lying flat in bed without any chest pain, shortness of breath, palpitation. Abdominal discomfort is also getting better. Denies any nausea, vomiting, diarrhea, hematemesis, melena. PAST MEDICAL HISTORY: Past history positive for diet-controlled diabetes mellitus type 2, hypertension, macular degeneration, peripheral neuropathy. The patient in the past kidney stone removed through cystoscopy and also has appendectomy. PERSONAL HISTORY: Denies smoking. Denies drinking. ALLERGIES: THE PATIENT IS ALLERGIC TO PENICILLIN, CIPRO, IBUPROFEN. MEDICATIONS: The patient's home medications include Lipitor 40 mg daily, Cozaar 50 mg daily, Ecotrin 81 mg daily, Pepcid 20 mg daily, Valium 5 mg p.o. every 8 hours p.r.n., Zetia 10 mg daily. REVIEW OF SYSTEMS: All the systems are reviewed. Positives mentioned in the history, others were negative. PHYSICAL EXAMINATION: VITAL SIGNS: Blood pressure 122/67, respirations 18, pulse 58, temperature 98. HEENT: Head is normocephalic. Eyes: Pupils normal. Conjunctivae normal. Nose and throat normal. NECK: JVP low. Carotids equal. THORAX: AP diameter normal. LUNGS: Clear. CARDIOVASCULAR: S1 and S2. ABDOMEN: Soft. No organomegaly. Bowel sound normal. EXTREMITIES: No clubbing. No cyanosis. LABORATORY DATA: WBC 5.5, hemoglobin 11.7, hematocrit 37.1, platelet 200. Sodium 139, potassium 3.9, BUN 15, creatinine 1, glucose 146, calcium 8.8, magnesium 2.1, bilirubin 0.4. AST, ALT normal. Troponin less than 0.01. Lipase 101, total protein 6.2, albumin 3.7, globulin 2.5. Chest x-ray: No active disease. EKG showed regular sinus rhythm. Left anterior hemiblock. Heart rate around 55 per minute. DIAGNOSES: Abdominal bloating, numbness of left arm, hypertension, diabetes, hyperlipidemia, macular degeneration, diabetes controlled by diet. PLAN: The patient does regular exercise without any chest pain, numbness of left arm. is probably nonspecific. The patient's symptoms are most related to GI. Plan is the patient is already on Cozaar 50 daily, aspirin 81 daily, atorvastatin 40 daily, Lovenox had been given subcu 40 mg daily, Pepcid 20 mg p.o. daily, Zetia 10 mg daily. If the patient's abdominal symptom continue, he need GI evaluation. From cardiac point of view, if GI intervention needed, he can go for GI intervention from cardiac point of view as moderate risk. There is no contraindication going for any GI procedure. Once the GI workup is completed, the patient can go home. He will follow up with us as outpatient in the office and then we will arrange his stress test as outpatient. We will follow up. Wendy Corley MD
[2018-07-05] MEDS: Tmp-Smz 800 mg-160 mg DS Tab PO SCH (18:29)
[2018-07-05] MEDS ORDERED: Latanoprost 2.5 ml Opht Soln OU SCH (22:00)
[2018-07-06 06:04] VITALS: RESP 18; O2SAT 96
[2018-07-06 07:21] LABS: BASO # 0.04 K/mm3 (0.0-2.0); BASO % 0.7 % (0.0-3.0); EOS # 0.1 (0.0-0.7); GRAN # 2.32 (1.4-6.5); GRAN % 38.9 % (50.0-68.0); HEMOGLOBIN 12.1 g/dL (14.0-18.0); LYMPH % 49.5 % (22.0-35.0); MEAN CELL VOLUME 80.6 fl (80.0-105.0); MEAN CORPUSCULAR HEMOGLOBIN 25.3 pg (25.0-35.0); MEAN CORPUSCULAR HGB CONC 31.3 g/dl (31.0-37.0); MEAN PLATELET VOLUME 9.8 fl (7.0-11.0); MONO # 0.5 (0.1-0.6); MONO % 8.9 % (1.0-6.0); RBC 4.79 10^6/uL (3.5-6.1); RED CELL DISTRIBUTION WIDTH 16.5 % (11.5-14.5)
[2018-07-06 07:40] LABS: ALB/GLOB RATIO 1.3 (1.1-1.8); ALBUMIN 3.3 g/dL (3.0-4.8); ALT/SGPT 27 U/L (7-56); AST/SGOT 21 U/L (17-59); BLOOD UREA NITROGEN 12 mg/dL (7-21); CALCIUM 8.5 mg/dL (8.4-10.5); GFR NON-AFRICAN AMERICAN > 60
[2018-07-06] MEDS ORDERED: Midazolam 2 MG/2 ML VIAL ONE (08:09)
[2018-07-06] MEDS ORDERED: VITAMIN E PO SCH (10:00)
[2018-07-06] MEDS ORDERED: Enoxaparin 40 mg Syringe SC SCH (10:00)
[2018-07-06] MEDS ORDERED: LUTEIN ZEAXANTHIN PO SCH (10:00)
[2018-07-06] MEDS ORDERED: COENZYME Q10 PO SCH (10:00)
[2018-07-06] MEDS ORDERED: Cholecalciferol 1,000 INTLU TAB PO SCH (10:00)
[2018-07-06] MEDS: Tmp-Smz 800 mg-160 mg DS Tab PO SCH (11:04)
[2018-07-06 12:08] VITALS: BP 128/68; PULSE 58; TEMP 98
--- NOTE | 2018-07-06 13:26 | CP.PCM.DIS ---
<Ralph Barron - Last Filed: 07/06/18 13:38> Provider - Provider Date of Admission: 07/05/18 11:22 Attending physician: Dustin lEdridge MD Primary care physician: Gomez Gamboa MD Consults: Dr. Corley Time Spent in preparation of Discharge (in minutes): 35 Hospital Course - Lab Results Lab Results: Most Recent Lab Values WBC 6.0 10^3/ul (4.5-11.0) 07/06/18 07:00 RBC 4.79 10^6/uL (3.5-6.1) 07/06/18 07:00 Hgb 12.1 g/dL (14.0-18.0) L 07/06/18 07:00 Hct 38.6 % (42.0-52.0) L 07/06/18 07:00 MCV 80.6 fl (80.0-105.0) 07/06/18 07:00 MCH 25.3 pg (25.0-35.0) 07/06/18 07:00 MCHC 31.3 g/dl (31.0-37.0) 07/06/18 07:00 RDW 16.5 % (11.5-14.5) H 07/06/18 07:00 Plt Count 177 10^3/uL (120.0-450.0) 07/06/18 07:00 MPV 9.8 fl (7.0-11.0) 07/06/18 07:00 Gran % 38.9 % (50.0-68.0) L 07/06/18 07:00 Lymph % (Auto) 49.5 % (22.0-35.0) H 07/06/18 07:00 Bee % (Auto) 8.9 % (1.0-6.0) H 07/06/18 07:00 Eos % (Auto) 2.0 % (1.5-5.0) 07/06/18 07:00 Baso % (Auto) 0.7 % (0.0-3.0) 07/06/18 07:00 Gran # 2.32 (1.4-6.5) 07/06/18 07:00 Lymph # (Auto) 3.0 (1.2-3.4) 07/06/18 07:00 Bee # (Auto) 0.5 (0.1-0.6) 07/06/18 07:00 Eos # (Auto) 0.1 (0.0-0.7) 07/06/18 07:00 Baso # (Auto) 0.04 K/mm3 (0.0-2.0) 07/06/18 07:00 Sodium 140 mmol/L (132-148) 07/06/18 06:30 Potassium 4.3 mmol/L (3.6-5.0) 07/06/18 06:30 Chloride 108 mmol/L (98-107) H 07/06/18 06:30 Carbon Dioxide 28 mmol/L (21-33) 07/06/18 06:30 Anion Gap 8 (10-20) L 07/06/18 06:30 BUN 12 mg/dL (7-21) 07/06/18 06:30 Creatinine 1.0 mg/dl (0.8-1.5) 07/06/18 06:30 Est GFR ( Amer) > 60 07/06/18 06:30 Est GFR (Non-Af Amer) > 60 07/06/18 06:30 POC Glucose (mg/dL) 115 mg/dL (65-110) H 07/06/18 11:57 Random Glucose 93 mg/dL (70-110) 07/06/18 06:30 Hemoglobin A1c 6.5 % (4.2-6.5) 07/05/18 12:20 Calcium 8.5 mg/dL (8.4-10.5) 07/06/18 06:30 Magnesium 2.1 mg/dL (1.7-2.2) 07/05/18 10:30 Total Bilirubin 0.5 mg/dL (0.2-1.3) 07/06/18 06:30 AST 21 U/L (17-59) 07/06/18 06:30 ALT 27 U/L (7-56) 07/06/18 06:30 Alkaline Phosphatase 41 U/L (38-126) 07/06/18 06:30 Lactate Dehydrogenase 473 U/L (333-699) 07/05/18 10:30 Total Creatine Kinase 130 U/L (35-230) 07/05/18 10:30 Troponin I < 0.01 ng/mL 07/05/18 20:06 NT-Pro-B Natriuret Pep 35.3 pg/mL (0-450) 07/05/18 10:30 Total Protein 5.8 g/dL (5.8-8.3) 07/06/18 06:30 Albumin 3.3 g/dL (3.0-4.8) 07/06/18 06:30 Globulin 2.5 gm/dL 07/06/18 06:30 Albumin/Globulin Ratio 1.3 (1.1-1.8) 07/06/18 06:30 Triglycerides 83 mg/dL (35-160) 07/05/18 13:00 Cholesterol 125 mg/dL (130-200) L 07/05/18 13:00 LDL Cholesterol Direct 52 mg/dL (0-129) 07/05/18 13:00 HDL Cholesterol 54 mg/dL (29-60) 07/05/18 13:00 Lipase 109 U/L (23-300) 07/05/18 10:30 TSH 3rd Generation 1.81 mIU/mL (0.46-4.68) 07/05/18 12:30 Urine Color Yellow (YELLOW) 07/05/18 10:16 Urine Appearance Clear (CLEAR) 07/05/18 10:16 Urine pH 6.0 (4.7-8.0) 07/05/18 10:16 Ur Specific Waterflow 1.025 (1.005-1.035) 07/05/18 10:16 Urine Protein Trace mg/dL (<30 mg/dL) H 07/05/18 10:16 Urine Glucose (UA) 100 mg/dL (NEGATIVE) H 07/05/18 10:16 Urine Ketones Negative mg/dL (NEGATIVE) 07/05/18 10:16 Urine Blood Negative (NEGATIVE) 07/05/18 10:16 Urine Nitrate Negative (NEGATIVE) 07/05/18 10:16 Urine Bilirubin Negative (NEGATIVE) 07/05/18 10:16 Urine Urobilinogen 0.2 E.U./dL (<1 E.U./dL) 07/05/18 10:16 Ur Leukocyte Esterase Trace [place]/uL (NEGATIVE) H 07/05/18 10:16 Urine RBC Negative /hpf (0-2) 07/05/18 10:16 Urine WBC 5 - 10 /hpf (0-6) 07/05/18 10:16 Urine Bacteria Few (NEG) 07/05/18 10:16 - Hospital Course Hospital Course: 77 year old male with a past medical history of hypertension, nephrolithiasis, macular degeneration, dyslipidemia, DM II (not on medication), GERD with last endoscopy on 02/26/18, who presents to the ED for feeling "slow" and some epigastric discomfort he experienced when coming in for cardiac rehabilitation. At the time of admission he denied chest pain, but admitted to epigastric discomfort and associated shortness of breath. He denied radiation of the pain, diaphoresis, or symptoms of lower extremity claudication. When asked why he goes to cardiac rehabilitation, he states that he was saw Dr. Delvin Keane for varicose veins and was recommended to try cardiac rehabilitation (for conservative therapy). He does have a technology strategist, Dr. Corley, and chart review indicated the patient underwent a stress test in 11/2017 that was negative for ischemia. In the ED he was given 325 of aspirin, Meropenem for empiric treatment of a UTI, and fluids as the patient did appear dry. The patient's troponins x 3 were negative. His EKG (x2) showed no signs of active ischemia. Cardiology was consulted, Dr. Corley, who thought the patient's chest pain was non-cardiac in nature and recommended outpatient follow up and possible consideration of a GI evaluation. The patient's chest pain resolved as did he epigastric discomfort and other symptoms while in the ED. He was kept overnight to monitor him on telemetry. No chest pain or arrhytmias were noted throughout the patient's stay. He was discharged with Protonix 40 mg for a 30 day supply. He was recommended to follow up with his PMD to repeat a UA given he had no urinary symptoms and a midstream, clean catch was not obtained in the ED. He was discharged with the below written instructions and recommendations. He was asked to return to ED should any of his symptoms return. - Date & Time of H&P Date of H&P: 07/06/18 Time of H&P: 13:19 Discharge Exam - Head Exam Head Exam: ATRAUMATIC, NORMOCEPHALIC - Eye Exam Eye Exam: Conjunctival injection, EOMI, Normal appearance - ENT Exam ENT Exam: Mucous Membranes Moist, Normal Oropharynx - Neck Exam Neck exam: Normal Inspection - Respiratory Exam Respiratory Exam: Clear to PA & Lateral, NORMAL BREATHING PATTERN. absent: Accessory Muscle Use - Cardiovascular Exam Cardiovascular Exam: RRR, +S1, +S2 - GI/Abdominal Exam GI & Abdominal Exam: Normal Bowel Sounds. absent: Distended, Guarding - Extremities Exam Extremities exam: normal inspection - Back Exam Back exam: NORMAL INSPECTION. absent: CVA tenderness (L), CVA tenderness (R) - Neurological Exam Neurological exam: Alert, CN II-XII Intact, Oriented x3 - Psychiatric Exam Psychiatric exam: Normal Affect, Normal Mood - Skin Skin Exam: Dry, Intact, Normal Color, Warm Discharge Plan - Discharge Medications Prescriptions: Pantoprazole [Protonix EC Tab] 40 mg PO DAILY #30 ect - Follow Up Plan Condition: STABLE Disposition: HOME/ ROUTINE Instructions: Chest Pain (DC), Urinary Tract Infection in Men (DC), Dysuria ( GEN) Additional Instructions: 1) You are to follow up your PMD within 3 days of discharge. You should get a repeat Urinalysis to ensure you have to signs of a Urinary Tract Infection. 2) You are to follow up with Dr. Corley as an outpatient. 3) You are to follow up with Dr. Beal as an outpatient. 4) Please return to the ED for any return of symptoms. 5) You are being prescribed Pantoprazole for your GERD. This pill is to be taken daily 30 minutes before your first meal with at least 8 ounces of water. Please discontinue your Zantac/Ranitidine. Referrals: Gomez Gamboa MD [Primary Care Provider] - Lilibeth Beal MD [Medical Doctor] - Wendy Corley MD [Staff Provider] - <Dustin Eldridge - Last Filed: 07/07/18 15:54> Provider - Provider Date of Admission: 07/05/18 11:22 Attending physician: Dustin Eldridge MD Primary care physician: Gomez Gamboa MD Hospital Course - Lab Results Lab Results: Micro Results 07/05/18 12:00 Urine,Clean Catch Urine Culture - Final No Growth (<1,000 CFU/ML) Most Recent Lab Values WBC 6.0 10^3/ul (4.5-11.0) 07/06/18 07:00 RBC 4.79 10^6/uL (3.5-6.1) 07/06/18 07:00 Hgb 12.1 g/dL (14.0-18.0) L 07/06/18 07:00 Hct 38.6 % (42.0-52.0) L 07/06/18 07:00 MCV 80.6 fl (80.0-105.0) 07/06/18 07:00 MCH 25.3 pg (25.0-35.0) 07/06/18 07:00 MCHC 31.3 g/dl (31.0-37.0) 07/06/18 07:00 RDW 16.5 % (11.5-14.5) H 07/06/18 07:00 Plt Count 177 10^3/uL (120.0-450.0) 07/06/18 07:00 MPV 9.8 fl (7.0-11.0) 07/06/18 07:00 Gran % 38.9 % (50.0-68.0) L 07/06/18 07:00 Lymph % (Auto) 49.5 % (22.0-35.0) H 07/06/18 07:00 Bee % (Auto) 8.9 % (1.0-6.0) H 07/06/18 07:00 Eos % (Auto) 2.0 % (1.5-5.0) 07/06/18 07:00 Baso % (Auto) 0.7 % (0.0-3.0) 07/06/18 07:00 Gran # 2.32 (1.4-6.5) 07/06/18 07:00 Lymph # (Auto) 3.0 (1.2-3.4) 07/06/18 07:00 Bee # (Auto) 0.5 (0.1-0.6) 07/06/18 07:00 Eos # (Auto) 0.1 (0.0-0.7) 07/06/18 07:00 Baso # (Auto) 0.04 K/mm3 (0.0-2.0) 07/06/18 07:00 Sodium 140 mmol/L (132-148) 07/06/18 06:30 Potassium 4.3 mmol/L (3.6-5.0) 09/18/18 06:30 Chloride 108 mmol/L (98-107) H 07/06/18 06:30 Carbon Dioxide 28 mmol/L (21-33) 07/06/18 06:30 Anion Gap 8 (10-20) L 07/06/18 06:30 BUN 12 mg/dL (7-21) 07/06/18 06:30 Creatinine 1.0 mg/dl (0.8-1.5) 07/06/18 06:30 Est GFR ( Amer) > 60 07/06/18 06:30 Est GFR (Non-Af Amer) > 60 07/06/18 06:30 POC Glucose (mg/dL) 115 mg/dL (65-110) H 07/06/18 11:57 Random Glucose 93 mg/dL (70-110) 07/06/18 06:30 Hemoglobin A1c 6.5 % (4.2-6.5) 07/05/18 12:20 Calcium 8.5 mg/dL (8.4-10.5) 07/06/18 06:30 Magnesium 2.1 mg/dL (1.7-2.2) 07/05/18 10:30 Total Bilirubin 0.5 mg/dL (0.2-1.3) 07/06/18 06:30 AST 21 U/L (17-59) 07/06/18 06:30 ALT 27 U/L (7-56) 07/06/18 06:30 Alkaline Phosphatase 41 U/L (38-126) 07/06/18 06:30 Lactate Dehydrogenase 473 U/L (333-699) 07/05/18 10:30 Total Creatine Kinase 130 U/L (35-230) 07/05/18 10:30 Troponin I < 0.01 ng/mL 07/05/18 20:06 NT-Pro-B Natriuret Pep 35.3 pg/mL (0-450) 07/05/18 10:30 Total Protein 5.8 g/dL (5.8-8.3) 07/06/18 06:30 Albumin 3.3 g/dL (3.0-4.8) 07/06/18 06:30 Globulin 2.5 gm/dL 07/06/18 06:30 Albumin/Globulin Ratio 1.3 (1.1-1.8) 07/06/18 06:30 Triglycerides 83 mg/dL (35-160) 07/05/18 13:00 Cholesterol 125 mg/dL (130-200) L 07/05/18 13:00 LDL Cholesterol Direct 52 mg/dL (0-129) 07/05/18 13:00 HDL Cholesterol 54 mg/dL (29-60) 07/05/18 13:00 Lipase 109 U/L (23-300) 07/05/18 10:30 TSH 3rd Generation 1.81 mIU/mL (0.46-4.68) 07/05/18 12:30 Urine Color Yellow (YELLOW) 07/05/18 10:16 Urine Appearance Clear (CLEAR) 07/05/18 10:16 Urine pH 6.0 (4.7-8.0) 07/05/18 10:16 Ur Specific Waterflow 1.025 (1.005-1.035) 07/05/18 10:16 Urine Protein Trace mg/dL (<30 mg/dL) H 07/05/18 10:16 Urine Glucose (UA) 100 mg/dL (NEGATIVE) H 07/05/18 10:16 Urine Ketones Negative mg/dL (NEGATIVE) 07/05/18 10:16 Urine Blood Negative (NEGATIVE) 07/05/18 10:16 Urine Nitrate Negative (NEGATIVE) 07/05/18 10:16 Urine Bilirubin Negative (NEGATIVE) 07/05/18 10:16 Urine Urobilinogen 0.2 E.U./dL (<1 E.U./dL) 07/05/18 10:16 Ur Leukocyte Esterase Trace [place]/uL (NEGATIVE) H 07/05/18 10:16 Urine RBC Negative /hpf (0-2) 07/05/18 10:16 Urine WBC 5 - 10 /hpf (0-6) 07/05/18 10:16 Urine Bacteria Few (NEG) 07/05/18 10:16 Attending/Attestation - Attestation I have personally seen and examined this patient.: Yes I have fully participated in the care of the patient.: Yes I have reviewed all pertinent clinical information, including history, physical exam and plan: Yes Notes (Text): 07/07/18 15:52 Attending note; Patient seen and examined with resident. Patient is alert and awake. Denies any chest pain, shortness of breath. Denies any nausea, vomiting. Tolerating diet well. Patient is a 77 year old male with a past medical history of hypertension, nephrolithiasis, macular degeneration, dyslipidemia, DM II, GERD with last endoscopy on 02/26/18, who presents to the ED for lower chest and some epigastric discomfort he experienced when coming in for cardiac rehabilitation. Patient will be admitted to telemetry. Cardiac enzymes negative. EKG showed no acute changes. Cardiology evaluation Dr. Corley requested. Patient is started on PPI. Needs outpatient GI evaluation with . UA showed 10 wbc. Possibly improper collection. Patient denies any complaints. Treated with Bactrim. Urine culture is negative. Advised to get UA as outpatient. Case discussed with PMD in detail about follow up plan. Upon discharge the patient will follow up with PMD . 07/07/18 15:53
--- NOTE | 2018-07-06 14:04 | CARD ---
APPROVED REPORT Date of service: 07/05/2018 EKG Measurement Heart [id number] ID [id number] <Conclusion> Sinus bradycardia Left axis deviation Abnormal ECG
--- NOTE | 2018-07-06 14:07 | CARD ---
APPROVED REPORT Date of service: 07/05/2018 EKG Measurement Heart [id number] <Conclusion> Normal sinus rhythm Left axis deviation Incomplete right bundle branch block Abnormal ECG
--- NOTE | 2018-07-06 14:29 | PN ---
DATE: 07/06/2018 REASON FOR CONSULTATION AND FOLLOWUP: Abdominal pain, diabetes, hypertension, hyperlipidemia, cardiac evaluation for chest pain. SUBJECTIVE: Patient denies any chest pain, shortness of breath or any palpitation. Complaining of abdominal pain, improving. OBJECTIVE: VITAL SIGNS: Temperature afebrile, heart rate 57, blood pressure 120/65. HEENT: PERRLA. Extraocular muscles are intact. NECK: Supple. No carotid bruits or thyromegaly. CHEST: Clear to auscultation. HEART: S1 and S2 regular. ABDOMEN: Soft. EXTREMITIES: Clubbing and cyanosis, negative. LABORATORY DATA: Blood workup as follows: WBC 6, hemoglobin 12. , hematocrit 38.6, platelet count 177. Chemistry shows sodium 140, potassium 4.3, chloride 108, carbon dioxide 28, anion gap of 8, BUN 12, creatinine 1. Troponin 0.01, negative. IMPRESSION: A 77-year-old male with a past medical history of diabetes, hypertension, hyperlipidemia, gastroesophageal reflux, macular degeneration, peripheral neuropathy, history of removal of stones from the kidney, admitted with abdominal pain. So far, no evidence of acute myocardial infarction. RECOMMENDATIONS: We will schedule a stress test and echo as an outpatient. Continue current medications. We will discontinue IV fluids, discontinue Telemetry, possible discharge home today. Thank you, Dr. Eldridge, for providing us the opportunity in taking care of the patient, [employer]. Wendy Billings MD
== END 2018-07-06 15:02 | disposition home or self-care (01) ==
LOC: ED 09:10 → ERH 11:22 → 2RNO 18:51
PROVIDERS: ADMIT Internal Medicine; ATTEND Internal Medicine
DX: R07.89 Other chest pain (principal); E11.42 Type 2 diabetes mellitus with diabetic polyneuropathy; N39.0 Urinary tract infection, site not specified; I10 Essential (primary) hypertension; E78.5 Hyperlipidemia, unspecified; K21.9 Gastro-esophageal reflux disease without esophagitis; F41.9 Anxiety disorder, unspecified; H35.30 Unspecified macular degeneration; H40.9 Unspecified glaucoma; Z86.73 Personal history of transient ischemic attack (TIA), and cerebral infarction without residual deficits; Z87.891 Personal history of nicotine dependence; Z88.0 Allergy status to penicillin
CPT/HCPCS: 36415; 71045; 80053; 80061; 81001; 82550; 82948; 83036; 83615; 83690; 83735; 83880; 84443; 84484; 85025; 87086; 93005; 99285; C9113; G0378; J1650; J2185; J7030

== ENCOUNTER 2018-11-10 07:28 | Outpatient (CLI) | payer MEDICARE, OTHER | END 2018-11-10 07:29 | disposition home or self-care (01) | LOC: LAB 07:28 ==

== ENCOUNTER 2018-12-09 13:11 | Observation (INO) | payer MEDICARE, OTHER ==
[2018-12-09 13:12] VITALS: BMI 30.8
--- NOTE | 2018-12-09 14:00 | ED PDOC ---
Arrival/HPI - General Chief Complaint: Chest Pain Time Seen by Provider: 12/09/18 13:23 - History of Present Illness Narrative History of Present Illness (Text): 12/09/18 13:56 78 yr old male w/ hx of htn, hld, DM2 (not on medications), TIA p/w chest pres sure. Pt notes that he shoveled snow, broke down boxes in his garage and then noted chest pain 1 hour prior to arrival. He notes chest pain is a pressure, throbbing, without radiation. First time occurence. He notes taking his 81mg aspirin and his daily medications this morning. He denies any fall or trauma. No tearing back pain. No shortness of breath or leg swelling. No fever, chills or night sweats. No other complaints Past Medical History - Infectious Disease Hx of Infectious Diseases: None - Tetanus Immunization Tetanus Immunization: Unknown - Cardiac Hx Cardiac Disorders: No - Pulmonary Hx Respiratory Disorders: No - Neurological Hx Neurological Disorder: No - HEENT Hx HEENT Disorder: Yes Hx Cataracts: Yes Hx Macular Degeneration: Yes - Renal Hx Renal Disorder: Yes Hx Kidney Stones: Yes - Endocrine/Metabolic Hx Endocrine Disorders: Yes Hx Diabetes Mellitus Type 2: Yes - Hematological/Oncological Hx Blood Disorders: No - Integumentary Hx Dermatological Disorder: No - Musculoskeletal/Rheumatological Hx Musculoskeletal Disorders: No - Gastrointestinal Hx Gastrointestinal Disorders: No - Genitourinary/Gynecological Hx Genitourinary Disorders: No - Psychiatric Hx Psychophysiologic Disorder: No Hx Substance Use: No - Past Surgical History Past Surgical History: Non-Contributing - Surgical History Hx Appendectomy: Yes Other/Comment: eye laser surgery. hand surgery - Anesthesia Hx Anesthesia: Yes Hx Anesthesia Reactions: No Hx Malignant Hyperthermia: No - Suicidal Assessment Feels Threatened In Home Enviroment: No Family/Social History Family/Social History: Unknown Family HX Smoking Status: Never Smoked Hx Alcohol Use: No Hx Substance Use: No Hx Substance Use Treatment: No Allergies/Home Meds Allergies/Adverse Reactions: Allergies ciprofloxacin [From Cipro] Allergy (Verified 11/17/17 22:00) RASH ciprofloxacin HCl [From Cipro] Allergy (Verified 11/17/17 22:00) RASH ibuprofen Allergy (Verified 11/17/17 22:00) RASH Penicillins Allergy (Verified 11/17/17 22:00) RASH IV DYE Allergy (Severe, Uncoded 02/18/18 11:12) SWELLING Home Medications: Home Meds Medication Instructions Recorded Confirmed RX: Atorvastatin [Lipitor] 40 mg PO QPM 01/01/17 12/09/18 RX: Ezetimibe [Zetia] 10 mg PO QPM 01/01/17 12/09/18 RX: Latanoprost 1 drop EACHEYE HS 01/01/17 12/09/18 RX: Losartan [Cozaar] 50 mg PO DAILY 01/01/17 12/09/18 RX: Lutein/Zeaxanthin 1 cap PO DAILY 01/01/17 12/09/18 [Lutein-Zeaxanthin 25-5 mg Sfgl] RX: Aspirin [Ecotrin] 81 mg PO DAILY 11/17/17 12/09/18 RX: Vitamin E 400 unit PO DAILY 11/17/17 12/09/18 RX: Alprazolam [Xanax] 0.25 mg PO HS PRN 02/18/18 12/09/18 RX: Ascorbic Acid [Vitamin C 500 500 mg PO DAILY 02/18/18 12/09/18 mg Tab] RX: Cholecalciferol [Vitamin D 1,000 iu PO DAILY 02/18/18 12/09/18 1000 IU] RX: Fluticasone Nasal [Flonase] 2 actuation NS DAILY PRN 02/18/18 12/09/18 RX: Ubidecarenone/Vitamin E Mixed 1 cap PO DAILY 02/18/18 12/09/18 [[id number] 200 mg-20 Unit Sfg] RX: Ranitidine HCl [Acid Bead Machine Operator] 150 mg PO DAILY 12/09/18 12/09/18 Review of Systems - Review of Systems Constitutional: absent: Fatigue, Weight Change, Fevers Eyes: absent: Vision Changes, Photophobia, Eye Pain ENT: absent: Hearing Changes, Tinnitus, TMJ Pain Respiratory: absent: SOB, Cough, Sputum, Wheezing Cardiovascular: Chest Pain. absent: Palpitations, Edema, Calf Pain, الع[place], Orthopnea, Syncope, Other Gastrointestinal: absent: Abdominal Pain, Stool Changes Genitourinary Male: absent: Dysuria, Frequency, Hematuria Musculoskeletal: absent: Arthralgias, Back Pain, Neck Pain Skin: absent: Rash, Pruritis, Skin Lesions Neurological: absent: Headache Endocrine: absent: Diaphoresis Hemo/Lymphatic: absent: Adenopathy Physical Exam Vital Signs Temp Pulse Resp BP Pulse Ox 12/09/18 13:32 98.2 F 66 18 132/90 98 Temperature: Afebrile Blood Pressure: Normal Pulse: Regular Respiratory Rate: Normal Appearance: Positive for: Well-Appearing Pain Distress: None Mental Status: Positive for: Alert and Oriented X 3 - Systems Exam Head: Present: Atraumatic, Normocephalic Pupils: Present: PERRL Extroacular Muscles: Present: EOMI Conjunctiva: Present: Normal Ears: Present: Normal Mouth: Present: Moist Mucous Membranes Pharnyx: Present: Normal. No: ERYTHEMA Nose (External): Present: Atraumatic Neck: Present: Normal Range of Motion. No: Meningeal Signs, MIDLINE TENDERNESS Respiratory/Chest: Present: Clear to Auscultation, Good Air Exchange. No: Respiratory Distress, Accessory Muscle Use Cardiovascular: Present: Regular Rate and Rhythm. No: Murmurs Abdomen: No: Tenderness, Distention Back: Present: Normal Inspection. No: CVA Tenderness, Midline Tenderness Upper Extremity: Present: Normal Inspection, NORMAL PULSES, Neurovascularly Intact Lower Extremity: Present: Normal Inspection, NORMAL PULSES, Neurovascularly Intact. No: Swelling Neurological: Present: GCS=15, CN II-XII Intact, Speech Normal Skin: Present: Warm, Dry, Normal Color. No: Rashes Psychiatric: Present: Alert, Oriented x 3 Medical Decision Making ED Course and Treatment: 12/09/18 14:01 78 yr old male w/ CAD RF p/w chest pain. Chest pain moderate risk heart score. No fever, chills or night sweats. No rub noted on exam. No tearing back pain. No trauma or fall. No leg swelling or history of blood clots / recent surgery or hormonal therapy. Heart score: Age: 2 RF: 2 Story: 1 EK Trop: pending EK, NSR, no stemi Pending imaging and labs 12/09/18 15:12 Chest X-ray reviewed by radiologist, shows no active disease. 12/09/18 15:46 Labs largely unremarkable appreciate consult w/ Dr. Clark: to admit to his service pt in NAD, agreeable to plan - RAD Interpretation Radiology Orders: 12/09/18 13:55 CHEST TWO VIEWS (PA/LAT) [RAD] Stat Channel Marketing Coordinator: Radiologist Disposition/Present on Arrival - Present on Arrival Any Indicators Present on Arrival: No History of DVT/PE: No History of Uncontrolled Diabetes: No Urinary Catheter: No History of Decub. Ulcer: No History Surgical Site Infection Following: None - Disposition Have Diagnosis and Disposition been Completed?: Yes Diagnosis: Chest pain Disposition: HOSPITALIZED Disposition Time: 15:46 Condition: STABLE
[2018-12-09] MEDS: Sodium Chloride 0.9% 1,000 ML IV SCH (14:03)
[2018-12-09 14:09] LABS: BASO # 0.03 K/mm3 (0.0-2.0); BASO % 0.4 % (0.0-3.0); EOS # 0.1 (0.0-0.7); HEMOGLOBIN 13.4 g/dL (14.0-18.0); LYMPH # 3.3 (1.2-3.4); LYMPH % 45.6 % (22.0-35.0); MEAN CELL VOLUME 83.3 fl (80.0-105.0); MEAN CORPUSCULAR HGB CONC 31.2 g/dl (31.0-37.0); MEAN PLATELET VOLUME 9.9 fl (7.0-11.0); MONO # 0.4 (0.1-0.6); RBC 5.15 10^6/uL (3.5-6.1); RED CELL DISTRIBUTION WIDTH 15.7 % (11.5-14.5); WHITE BLOOD COUNT 7.2 10^3/uL (4.5-11.0)
[2018-12-09 14:19] LABS: ALB/GLOB RATIO 1.5 (1.1-1.8); ALBUMIN 4.2 g/dL (3.0-4.8); ALT/SGPT 21 U/L (7-56); AST/SGOT 25 U/L (17-59); BLOOD UREA NITROGEN 19 mg/dL (7-21); CALCIUM 9.5 mg/dL (8.4-10.5); GFR NON-AFRICAN AMERICAN > 60
[2018-12-09 14:31] LABS: TROPONIN I < 0.01 ng/mL
--- NOTE | 2018-12-09 15:06 | RAD ---
Date of service: 12/09/2018 HISTORY: cp COMPARISON: 07/05/2018 TECHNIQUE: Chest PA and lateral FINDINGS: LUNGS: No active pulmonary disease. PLEURA: No significant pleural effusion identified. No pneumothorax apparent. CARDIOVASCULAR: No aortic atherosclerotic calcification present. Normal cardiac size. No pulmonary vascular congestion. OSSEOUS STRUCTURES: No significant abnormalities. VISUALIZED UPPER ABDOMEN: Normal. OTHER FINDINGS: None. IMPRESSION: No active disease.
[2018-12-09] MEDS ORDERED: Albuterol-Ipratrop 3 mg / 0.5 (3 ml) UD IH PRN (15:40)
--- NOTE | 2018-12-09 16:41 | CP.PCM.HP ---
<DeliciaNiurka - Last Filed: 12/09/18 16:29> History of Present Illness - History of Present Illness History of Present Illness: Niurka Nesbitt, PGY-1, Internal Medicine History and Physical for Dr. Clark 78 year old male with past medical history of hypertension, hyperlipidemia, diabetes mellitus type II, TIA presented with chest pressure that started today. Patient reported that he was breaking down boxes in the garage this morning around 11:00 AM. Pain started while patient was resting around 12:30. Patient reports that it was a chest pressure that started substernally and ascended up. Pain did not radiate to jaw pain, left arm, dyspnea, nausea, vomiting, diaphoresis. Patient reported there were no exacerbating or remitting factors. Patient has had these sensations in the past, however, he cannot attribute any factor to these events. Patient also reported longstanding lumbar and cervical pain. Patient denied heart palpitations, constipation, diarrhea, dysuria, hematuria. 12-point ROS was unremarkable except for what was mentioned above. 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 Present on Admission - Present on Admission Any Indicators Present on Admission: No Review of Systems - Review of Systems Review of Systems: except for what was mentioned in HPI Past Patient History - Infectious Disease Hx of Infectious Diseases: None - Tetanus Immunizations Tetanus Immunization: Unknown - Past Social History Smoking Status: Never Smoked - CARDIAC Hx Cardiac Disorders: No - PULMONARY Hx Respiratory Disorders: No - NEUROLOGICAL Hx Neurological Disorder: No - HEENT Hx HEENT Problems: Yes Hx Cataracts: Yes Hx Macular Degeneration: Yes - RENAL Hx Chronic Kidney Disease: Yes Hx Kidney Stones: Yes - ENDOCRINE/METABOLIC Hx Endocrine Disorders: Yes Hx Diabetes Mellitus Type 2: Yes - HEMATOLOGICAL/ONCOLOGICAL Hx Blood Disorders: No - INTEGUMENTARY Hx Dermatological Problems: No - MUSCULOSKELETAL/RHEUMATOLOGICAL Hx Musculoskeletal Disorders: No - GASTROINTESTINAL Hx Gastrointestinal Disorders: No - GENITOURINARY/GYNECOLOGICAL Hx Genitourinary Disorders: No - PSYCHIATRIC Hx Psychophysiologic Disorder: No Hx Substance Use: No - SURGICAL HISTORY Hx Appendectomy: Yes Other/Comment: eye laser surgery. hand surgery - ANESTHESIA Hx Anesthesia: Yes Hx Anesthesia Reactions: No Hx Malignant Hyperthermia: No Meds Allergies/Adverse Reactions: Allergies Allergy/AdvReac Type Severity Reaction Status Date / Time ciprofloxacin [From Cipro] Allergy RASH Verified 11/17/17 22:00 ciprofloxacin HCl Allergy RASH Verified 11/17/17 22:00 [From Cipro] ibuprofen Allergy RASH Verified 11/17/17 22:00 Penicillins Allergy RASH Verified 11/17/17 22:00 IV DYE Allergy Severe SWELLING Uncoded 02/18/18 11:12 Physical Exam - Constitutional Appears: Well, Non-toxic, No Acute Distress - Head Exam Head Exam: ATRAUMATIC, NORMAL INSPECTION, NORMOCEPHALIC - Eye Exam Eye Exam: EOMI, PERRL - ENT Exam ENT Exam: Mucous Membranes Moist - Respiratory Exam Respiratory Exam: Clear to Auscultation Bilateral, NORMAL BREATHING PATTERN - Cardiovascular Exam Cardiovascular Exam: REGULAR RHYTHM, RRR - GI/Abdominal Exam GI & Abdominal Exam: Normal Bowel Sounds, Soft. absent: Tenderness - Extremities Exam Extremities exam: Positive for: full ROM - Back Exam Back exam: paraspinal tenderness - Neurological Exam Neurological exam: Alert, CN II-XII Intact, Oriented x3 - Skin Skin Exam: Dry, Intact Results - Vital Signs Recent Vital Signs: Last Vital Signs Temp 98.2 F 12/09/18 13:32 Pulse 59 L 12/09/18 15:42 Resp 18 12/09/18 15:42 BP 116/65 12/09/18 15:42 Pulse Ox 99 12/09/18 15:42 - Labs Result Diagrams: 12/09/18 13:45 12/09/18 13:45 Labs: Laboratory Results - last 24 hr 12/09/18 12/09/18 12/09/18 13:45 13:45 13:45 WBC 7.2 RBC 5.15 Hgb 13.4 L Hct 42.9 MCV 83.3 MCH 26.0 MCHC 31.2 RDW 15.7 H Plt Count 189 MPV 9.9 Neut % (Auto) 48.0 L Lymph % (Auto) 45.6 H [place] % (Auto) 5.0 Eos % (Auto) 1.0 L Baso % (Auto) 0.4 Lymph # (Auto) 3.3 [place] # (Auto) 0.4 Eos # (Auto) 0.1 Baso # (Auto) 0.03 Absolute Neuts (auto) 3.47 Sodium 139 Potassium 3.9 Chloride 105 Carbon Dioxide 25 Anion Gap 12 BUN 19 Creatinine 0.9 Est GFR ( Amer) > 60 Est GFR (Non-Af Amer) > 60 Random Glucose 154 H Calcium 9.5 Total Bilirubin 0.3 AST 25 ALT 21 Alkaline Phosphatase 43 Troponin I < 0.01 NT-Pro-B Natriuret Pep 42.0 Total Protein 6.9 Albumin 4.2 Globulin 2.8 Albumin/Globulin Ratio 1.5 TSH 3rd Generation 1.83 Assessment & Plan - Assessment and Plan (Free Text) Assessment: 78 year old male with past medical history of hypertension, hyperlipidemia, diabetes mellitus type II, TIA presented with chest pressure that started today. Patient was admitted for chest pain with ACS rule out. Plan: Chest Pain ACS rule out -EKG: NSR with HR: 67 -Troponinx1 negative. BNP unremarkable -Follow up troponinx2 Q6 -Follow up lipid panel, HgbA1c -Follow up echocardiogram to further evaluate cardiac function -Started home aspirin, lipitor, cozaar -Start heart healthy diet. -Dr. Corley, Cardiology, consulted for further recommendations. Lumbar and cervical pain likely 2/2 to osteoarthritis -Follow up results of cervical and lumbar X rays -Tylenol PRN for pain Anxiety -Start Xanax 0.25 PO HS PRN History of Diabetes Mellitus Type II -Follow up HgbA1c -Low SSI ordered -Accuchecks ACHS Hypertension -Currently normotensive -Continue with home cozaar Hyperlipidemia -Follow up lipid panel -Contnue with home lipitor. Stopped zetia. History of tobacco abuse -No current use -Started duonebs Q2PRN for shortness of breath Glaucoma -Continue with home latanoprost eyedrops GI prophylaxis: protonix 40 mg daily DVT prophylaxis: lovenox 40 mg daily - Date & Time Date: 12/09/18 Time: 16:42 <Wendy Clark - Last Filed: 12/09/18 17:47> Results - Vital Signs Recent Vital Signs: Last Vital Signs Temp 98.2 F 12/09/18 13:32 Pulse 58 L 12/09/18 17:00 Resp 18 12/09/18 17:00 BP 119/67 12/09/18 17:00 Pulse Ox 97 12/09/18 17:00 - Labs Result Diagrams: 12/09/18 13:45 12/09/18 13:45 Labs: Laboratory Results - last 24 hr 12/09/18 12/09/18 12/09/18 13:45 13:45 13:45 WBC 7.2 RBC 5.15 Hgb 13.4 L Hct 42.9 MCV 83.3 MCH 26.0 MCHC 31.2 RDW 15.7 H Plt Count 189 MPV 9.9 Neut % (Auto) 48.0 L Lymph % (Auto) 45.6 H [place] % (Auto) 5.0 Eos % (Auto) 1.0 L Baso % (Auto) 0.4 Lymph # (Auto) 3.3 [place] # (Auto) 0.4 Eos # (Auto) 0.1 Baso # (Auto) 0.03 Absolute Neuts (auto) 3.47 Sodium 139 Potassium 3.9 Chloride 105 Carbon Dioxide 25 Anion Gap 12 BUN 19 Creatinine 0.9 Est GFR ( Amer) > 60 Est GFR (Non-Af Amer) > 60 Random Glucose 154 H Calcium 9.5 Total Bilirubin 0.3 AST 25 ALT 21 Alkaline Phosphatase 43 Troponin I < 0.01 NT-Pro-B Natriuret Pep 42.0 Total Protein 6.9 Albumin 4.2 Globulin 2.8 Albumin/Globulin Ratio 1.5 TSH 3rd Generation 1.83 Attending/Attestation - Attestation I have personally seen and examined this patient.: Yes I have fully participated in the care of the patient.: Yes I have reviewed all pertinent clinical information: Yes Notes (Text): 12/09/18 17:45 Medical record note made by the resident after discussion with my direction and input after the patient was personally seen and examined by me. I have reviewed the chart and agree that the record accurately reflects by personal performance of the history, physical exam, data review, and medical decision-making, in the course for the patient. I have also personally directed the plan of care. 78 year old male with past medical history of hypertension, hyperlipidemia, diabetes mellitus type II, TIA is admitted with chest pain. EKG is negative for acute ischemic changes. Patient is pain free at this time. He will be admitted to the hospital on telemetry floor.We will get serial troponin ,2D Echo and cardiology consult. Management plan was discussed in detail with patient. Education was provided.
[2018-12-09] MEDS: Insulin Reg-LOW-Coverage SC SCH ×2 (17:17→22:24)
[2018-12-09 17:33] VITALS: O2SAT 97
[2018-12-09] MEDS ORDERED: Latanoprost 2.5 ml Opht Soln OU SCH (22:00)
--- NOTE | 2018-12-09 23:15 | CARD ---
APPROVED REPORT Date of service: 12/09/2018 EKG Measurement Heart [id number] [id number] <Conclusion> Normal sinus rhythm Left axis deviation Abnormal ECG
[2018-12-10 00:42] LABS: BARBITURATES, UR NEGATIVE (NEGATIVE); BENZODIAZEPINES, UR NEGATIVE (NEGATIVE); OPIATES, UR NEGATIVE (NEGATIVE); PHENCYCLIDINE, UR NEGATIVE (NEGATIVE)
[2018-12-10] MEDS: Sodium Chloride 0.9% 1,000 ML IV SCH (05:54)
[2018-12-10 06:31] LABS: BASO # 0.03 K/mm3 (0.0-2.0); BASO % 0.5 % (0.0-3.0); EOS # 0.1 (0.0-0.7); HEMOGLOBIN 12.7 g/dL (14.0-18.0); LYMPH % 47.2 % (22.0-35.0); MEAN CELL VOLUME 83.2 fl (80.0-105.0); MEAN CORPUSCULAR HEMOGLOBIN 25.8 pg (25.0-35.0); MEAN PLATELET VOLUME 9.6 fl (7.0-11.0); MONO # 0.5 (0.1-0.6); MONO % 7.9 % (1.0-6.0); RBC 4.93 10^6/uL (3.5-6.1); RED CELL DISTRIBUTION WIDTH 15.9 % (11.5-14.5); WHITE BLOOD COUNT 6.4 10^3/uL (4.5-11.0)
[2018-12-10 07:07] LABS: LDL CHOLESTEROL 57 mg/dL (0-129)
[2018-12-10 07:17] LABS: ALB/GLOB RATIO 1.5 (1.1-1.8); ALBUMIN 3.7 g/dL (3.0-4.8); ALT/SGPT 23 U/L (7-56); AST/SGOT 31 U/L (17-59); BLOOD UREA NITROGEN 15 mg/dL (7-21); CALCIUM 9.1 mg/dL (8.4-10.5); GFR NON-AFRICAN AMERICAN > 60; HDL CHOLESTEROL 56 mg/dL (29-60)
[2018-12-10] MEDS: Insulin Reg-LOW-Coverage SC SCH ×2 (08:17→12:38)
[2018-12-10 09:16] VITALS: RESP 16; TEMP 97.8
--- NOTE | 2018-12-10 09:57 | RAD ---
Date of service: 12/09/2018 PROCEDURE: Cervical Spine Radiographs. HISTORY: Pain. COMPARISON: None available. FINDINGS: BONES: Alignment maintained. No fracture. Dens Intact. DISC SPACES: Multilevel disc degeneration with loss of disc height. Small anterior osteophytes SOFT TISSUES: Normal. No prevertebral soft tissue swelling. OTHER FINDINGS: None. IMPRESSION: Multilevel disc degeneration with loss of disc height. Small anterior osteophytes
[2018-12-10] MEDS ORDERED: Enoxaparin 40 mg Syringe SC SCH (10:00)
[2018-12-10] MEDS ORDERED: Cholecalciferol 1,000 INTLU TAB PO SCH (10:00)
[2018-12-10] MEDS ORDERED: Pantoprazole 40 mg EC Tab PO SCH (10:00)
[2018-12-10] MEDS ORDERED: Aminophylline 25 mg/ml Inj ONE (10:17)
--- NOTE | 2018-12-10 10:17 | RAD ---
Date of service: 12/09/2018 PROCEDURE: Radiographs of the Lumbar Spine. HISTORY: pain; r/o fracture COMPARISON: No prior. FINDINGS: BONES: Normal alignment. No listhesis. No fracture. DISC SPACES: Disc degeneration at L4-5 and L5-S1. Marginal osteophytes are seen at multiple levels OTHER FINDINGS: None. IMPRESSION: Disc degeneration at L4-5 and L5-S1. Marginal osteophytes are seen at multiple levels
[2018-12-10 11:27] VITALS: BP 130/82; PULSE 81
--- NOTE | 2018-12-10 15:16 | CP.PCM.DIS ---
<Niurka Nesbitt - Last Filed: 12/10/18 15:05> Provider - Provider Date of Admission: 12/09/18 15:31 Attending physician: Wendy Clark MD Primary care physician: Gomez Gamboa MD Consults: 12/09/18 16:30 Cardiology Consult Routine Comment: Consulting Provider: Wendy Corley Consulting Physician: Wendy Corley Reason for Consult: Chest Pain; Patient known to you Time Spent in preparation of Discharge (in minutes): 60 Diagnosis - Discharge Diagnosis (1) Chest pain Status: Acute Hospital Course - Lab Results Lab Results: Most Recent Lab Values WBC 6.4 10^3/uL (4.5-11.0) 12/10/18 06:10 RBC 4.93 10^6/uL (3.5-6.1) 12/10/18 06:10 Hgb 12.7 g/dL (14.0-18.0) L 12/10/18 06:10 Hct 41.0 % (42.0-52.0) L 12/10/18 06:10 MCV 83.2 fl (80.0-105.0) 12/10/18 06:10 MCH 25.8 pg (25.0-35.0) 12/10/18 06:10 MCHC 31.0 g/dl (31.0-37.0) 12/10/18 06:10 RDW 15.9 % (11.5-14.5) H 12/10/18 06:10 Plt Count 189 10^3/uL (120.0-450.0) 12/10/18 06:10 MPV 9.6 fl (7.0-11.0) 12/10/18 06:10 Neut % (Auto) 42.4 % (50.0-68.0) L 12/10/18 06:10 Lymph % (Auto) 47.2 % (22.0-35.0) H 12/10/18 06:10 [place] % (Auto) 7.9 % (1.0-6.0) H 12/10/18 06:10 Eos % (Auto) 2.0 % (1.5-5.0) 12/10/18 06:10 Baso % (Auto) 0.5 % (0.0-3.0) 12/10/18 06:10 Lymph # (Auto) 3.0 (1.2-3.4) 12/10/18 06:10 [place] # (Auto) 0.5 (0.1-0.6) 12/10/18 06:10 Eos # (Auto) 0.1 (0.0-0.7) 12/10/18 06:10 Baso # (Auto) 0.03 K/mm3 (0.0-2.0) 12/10/18 06:10 Absolute Neuts (auto) 2.69 (1.4-6.5) 12/10/18 06:10 Sodium 140 mmol/L (132-148) 12/10/18 06:10 Potassium 4.5 mmol/L (3.6-5.0) 12/10/18 06:10 Chloride 109 mmol/L (98-107) H 12/10/18 06:10 Carbon Dioxide 27 mmol/L (21-33) 12/10/18 06:10 Anion Gap 8 (10-20) L 12/10/18 06:10 BUN 15 mg/dL (7-21) 12/10/18 06:10 Creatinine 1.0 mg/dl (0.8-1.5) 12/10/18 06:10 Est GFR ( Amer) > 60 12/10/18 06:10 Est GFR (Non-Af Amer) > 60 12/10/18 06:10 POC Glucose (mg/dL) 250 mg/dL (65-110) H 12/10/18 11:20 Random Glucose 96 mg/dL (70-110) 12/10/18 06:10 Hemoglobin A1c 6.7 % (4.2-6.5) H 12/10/18 06:10 Calcium 9.1 mg/dL (8.4-10.5) 12/10/18 06:10 Phosphorus 3.2 mg/dL (2.5-4.5) 12/10/18 06:10 Magnesium 2.1 mg/dL (1.7-2.2) 12/10/18 06:10 Total Bilirubin 0.5 mg/dL (0.2-1.3) 12/10/18 06:10 AST 31 U/L (17-59) 12/10/18 06:10 ALT 23 U/L (7-56) 12/10/18 06:10 Alkaline Phosphatase 43 U/L (38-126) 12/10/18 06:10 Troponin I < 0.01 ng/mL 12/10/18 01:50 NT-Pro-B Natriuret Pep 42.0 pg/mL (0-450) 12/09/18 13:45 Total Protein 6.1 g/dL (5.8-8.3) 12/10/18 06:10 Albumin 3.7 g/dL (3.0-4.8) 12/10/18 06:10 Globulin 2.4 gm/dL 12/10/18 06:10 Albumin/Globulin Ratio 1.5 (1.1-1.8) 12/10/18 06:10 Triglycerides 87 mg/dL (35-160) 12/10/18 06:10 Cholesterol 133 mg/dL (130-200) 12/10/18 06:10 LDL Cholesterol Direct 57 mg/dL (0-129) 12/10/18 06:10 HDL Cholesterol 56 mg/dL (29-60) 12/10/18 06:10 TSH 3rd Generation 1.83 mIU/mL (0.46-4.68) 12/09/18 13:45 Urine Opiates Screen Negative (NEGATIVE) 12/09/18 23:15 Urine Methadone Screen Negative (NEGATIVE) 12/09/18 23:15 Ur Barbiturates Screen Negative (NEGATIVE) 12/09/18 23:15 Ur Phencyclidine Scrn Negative (NEGATIVE) 12/09/18 23:15 Ur Amphetamines Screen Negative (NEGATIVE) 12/09/18 23:15 U Benzodiazepines Scrn Negative (NEGATIVE) 12/09/18 23:15 U Oth Cocaine Metabols Negative (NEGATIVE) 12/09/18 23:15 U Cannabinoids Screen Negative (NEGATIVE) 12/09/18 23:15 - Hospital Course Hospital Course: Niurka Nesbitt, PGY-1, Internal Medicine Discharge Summary for Dr. Clark 78 year old male with past medical history of hypertension, hyperlipidemia, diabetes mellitus type II, TIA presented with chest pressure that started yesterday. Patient was watching TV when pain started. Patient had no other associated symptoms or radiating pain. EKG showed NSR with HR of 62. Troponinx3 was negative ruling out Acute coronary syndrome. ProBNP was unremarkable. HgbA1c was 6.7. TSH was within normal limits. Lipid panel was unremarkable. Patient was started on aspirin, lipitor, home cozaar for chest pain. Patient had echocardiogram today and stress test today. After speaking to Dr. Billings, Cardiology, he said patient was medically stable for discharge today after echo and stress test were performed today. Patient also complained of cervical and lumbar pain. X rays of cervical and lumbar X ray were performed and degenerative changes consistent with osteoarthritis were found. Patient reported chest pressure, cervical, and lumbar pain to be improved today. Patient was found to be medically stable and ready for discharge today. Patient was told to follow up with PCP in 1-2 weeks. Patient was told to take all medications as prescribed. Patient was told to follow up with Dr. Corley in 1-2 weeks for further explanation of results of stress test and echocardiogram. Patient was told to return to the emergency department if he had any new or concerning symptoms. - Date & Time of H&P Date of H&P: 12/09/18 Time of H&P: 16:29 Discharge Exam - Head Exam Head Exam: ATRAUMATIC, NORMAL INSPECTION, NORMOCEPHALIC - Eye Exam Eye Exam: EOMI, PERRL - Respiratory Exam Respiratory Exam: Clear to PA & Lateral, NORMAL BREATHING PATTERN - GI/Abdominal Exam GI & Abdominal Exam: Normal Bowel Sounds, Soft. absent: Tenderness - Extremities Exam Extremities exam: full ROM - Neurological Exam Neurological exam: Alert, CN II-XII Intact, Normal Gait, Oriented x3 - Skin Skin Exam: Dry, Intact Discharge Plan - Follow Up Plan Condition: STABLE Disposition: HOME/ ROUTINE Instructions: Chest Pain (DC) Additional Instructions: Please follow up with your PCP in 1-2 weeks. Please follow up with Dr. Corley in 1-2 weeks. Please take all home medications as prescribed. Please return to the emergency department if you have any new or concerning symptoms. Referrals: Gomez Gamboa MD [Primary Care Provider] - Wendy Corley MD [Staff Provider] - <Wendy Clark - Last Filed: 12/11/18 11:53> Provider - Provider Date of Admission: 12/09/18 15:31 Attending physician: Wendy Clark MD Primary care physician: Gomez Gamboa MD Consults: 12/09/18 16:30 Cardiology Consult Routine Comment: Consulting Provider: Wendy Corley Consulting Physician: Wendy Corley Reason for Consult: Chest Pain; Patient known to [facility] Hospital Course - Lab Results Lab Results: Most Recent Lab Values WBC 6.4 10^3/uL (4.5-11.0) 12/10/18 06:10 RBC 4.93 10^6/uL (3.5-6.1) 12/10/18 06:10 Hgb 12.7 g/dL (14.0-18.0) L 12/10/18 06:10 Hct 41.0 % (42.0-52.0) L 12/10/18 06:10 MCV 83.2 fl (80.0-105.0) 12/10/18 06:10 MCH 25.8 pg (25.0-35.0) 12/10/18 06:10 MCHC 31.0 g/dl (31.0-37.0) 12/10/18 06:10 RDW 15.9 % (11.5-14.5) H 12/10/18 06:10 Plt Count 189 10^3/uL (120.0-450.0) 12/10/18 06:10 MPV 9.6 fl (7.0-11.0) 12/10/18 06:10 Neut % (Auto) 42.4 % (50.0-68.0) L 12/10/18 06:10 Lymph % (Auto) 47.2 % (22.0-35.0) H 12/10/18 06:10 [place] % (Auto) 7.9 % (1.0-6.0) H 12/10/18 06:10 Eos % (Auto) 2.0 % (1.5-5.0) 12/10/18 06:10 Baso % (Auto) 0.5 % (0.0-3.0) 12/10/18 06:10 Lymph # (Auto) 3.0 (1.2-3.4) 12/10/18 06:10 [place] # (Auto) 0.5 (0.1-0.6) 12/10/18 06:10 Eos # (Auto) 0.1 (0.0-0.7) 12/10/18 06:10 Baso # (Auto) 0.03 K/mm3 (0.0-2.0) 12/10/18 06:10 Absolute Neuts (auto) 2.69 (1.4-6.5) 12/10/18 06:10 Sodium 140 mmol/L (132-148) 12/10/18 06:10 Potassium 4.5 mmol/L (3.6-5.0) 12/10/18 06:10 Chloride 109 mmol/L (98-107) H 12/10/18 06:10 Carbon Dioxide 27 mmol/L (21-33) 12/10/18 06:10 Anion Gap 8 (10-20) L 12/10/18 06:10 BUN 15 mg/dL (7-21) 12/10/18 06:10 Creatinine 1.0 mg/dl (0.8-1.5) 12/10/18 06:10 Est GFR ( Amer) > 60 12/10/18 06:10 Est GFR (Non-Af Amer) > 60 12/10/18 06:10 POC Glucose (mg/dL) 250 mg/dL (65-110) H 12/10/18 11:20 Random Glucose 96 mg/dL (70-110) 12/10/18 06:10 Hemoglobin A1c 6.7 % (4.2-6.5) H 12/10/18 06:10 Calcium 9.1 mg/dL (8.4-10.5) 12/10/18 06:10 Phosphorus 3.2 mg/dL (2.5-4.5) 12/10/18 06:10 Magnesium 2.1 mg/dL (1.7-2.2) 12/10/18 06:10 Total Bilirubin 0.5 mg/dL (0.2-1.3) 12/10/18 06:10 AST 31 U/L (17-59) 12/10/18 06:10 ALT 23 U/L (7-56) 12/10/18 06:10 Alkaline Phosphatase 43 U/L (38-126) 12/10/18 06:10 Troponin I < 0.01 ng/mL 12/10/18 01:50 NT-Pro-B Natriuret Pep 42.0 pg/mL (0-450) 12/09/18 13:45 Total Protein 6.1 g/dL (5.8-8.3) 12/10/18 06:10 Albumin 3.7 g/dL (3.0-4.8) 12/10/18 06:10 Globulin 2.4 gm/dL 12/10/18 06:10 Albumin/Globulin Ratio 1.5 (1.1-1.8) 12/10/18 06:10 Triglycerides 87 mg/dL (35-160) 12/10/18 06:10 Cholesterol 133 mg/dL (130-200) 12/10/18 06:10 LDL Cholesterol Direct 57 mg/dL (0-129) 12/10/18 06:10 HDL Cholesterol 56 mg/dL (29-60) 12/10/18 06:10 TSH 3rd Generation 1.83 mIU/mL (0.46-4.68) 12/09/18 13:45 Urine Opiates Screen Negative (NEGATIVE) 12/09/18 23:15 Urine Methadone Screen Negative (NEGATIVE) 12/09/18 23:15 Ur Barbiturates Screen Negative (NEGATIVE) 12/09/18 23:15 Ur Phencyclidine Scrn Negative (NEGATIVE) 12/09/18 23:15 Ur Amphetamines Screen Negative (NEGATIVE) 12/09/18 23:15 U Benzodiazepines Scrn Negative (NEGATIVE) 12/09/18 23:15 U Oth Cocaine Metabols Negative (NEGATIVE) 12/09/18 23:15 U Cannabinoids Screen Negative (NEGATIVE) 12/09/18 23:15 Attending/Attestation - Attestation I have personally seen and examined this patient.: Yes I have fully participated in the care of the patient.: Yes I have reviewed all pertinent clinical information, including history, physical exam and plan: Yes Notes (Text): 12/11/18 11:51 Medical record note made by the resident after discussion with my direction and input after the patient was personally seen and examined by me. I have reviewed the chart and agree that the record accurately reflects by personal performance of the history, physical exam, data review, and medical decision-making, in the course for the patient. I have also personally directed the plan of care. 78 year old male with past medical history of hypertension, hyperlipidemia, diabetes mellitus type II, TIA was admitted with chest pain. EKG was negative for acute ischemic changes. Patient was admitted to the hospital on telemetry floor.Serial troponins are normal. Patient was evaluated by cardiology and underwent nuclear stress test which is negative for acute ischemia. Patient will be discharged home and will follow up with PCP and Cardiology. Management plan was discussed in detail with patient. Education was provided.
--- NOTE | 2018-12-10 15:33 | CARD ---
APPROVED REPORT Date of service: 12/10/2018 Protocol: LEXISCAN Test Type: Lexiscan Sestamibi Stress Test Attending Physician: Dr. Wendy Corley Referring Physician: Dr. Wendy Clark Test Indications: Chest Pain Height:5 ft 6 in Weight:195lbs Medications: Tylenol, Duoneb, Xanax, Lipitor, Ecotrin Vit D, Lovenox, Insulin Regular Xalatan, Protonix, ASA Medical History: 78 YEAR OLD MALE WITH A HISTORY OF DIABETES, , HTN HIGH CHOLESTEROL, TIA, SEIZURE Target HR: 143 bpm Resting ECG: RSR. Resting Heart Rate: 61 bpm Resting Blood Pressure: 136/76mmHg Submaximum (85%): 122 bpm PROCEDURE Pharmacologic stress testing was performed using 0.4mg per 5ml of regadenoson given intravenously over 7-10 seconds. POST EXERCISE Reason for Termination: Protocol completed Target HR: No Max HR: 51 bpm 67% of Maximum Predicted HR: 143 bpm Exercise duration: 00:31 min:sec, 0 Stage Exercise capacity: 1.0METs Max Blood Pressure: 136/76mmHg Blood Pressure response to exercise: normal resting BP - appropriate response Heart Rate response to exercise: appropriate Chest Pain: No, none Angina index: 0 Arrhythmia: No, none ST Change: No, none Deviation: 0 mm INTERPRETATION Stress EKG Conclusion: IV LEXISCAN NUCLEAR STRESS TEST NEGATIVE FOR CHEST PAIN AND NEGATIVE FOR ST-T CHANGES. NUCLEAR SCAN REPORT TO FOLLOW. Signed by Wendy Corley Electronically Approved: 12/10/2018 09:43:56 EXAM: Myocardial Perfusion REST/STRESS Stress Test Type: Pharmacologic Imaging Protocol The imaging protocol used to acquire images was Rest Tc-99m/stress Tc-99m 1 day Rest Spect myocardial perfusion imaging was performed in supine position 45 minutes following the injection of 10.3 mCi of Tc-99 Myoview. At peak stress, the patient was injected intravenously with 30.8mCi of Tc-99 tetrofosmin after an infusion time of 0 minutes and 10 seconds. Gated Stress Spect was performed 65 minutes after intravenous Tc-99 Myoview injection. The images were gated to evaluate regional wall motion and calculate ventricular ejection fraction.Images were reconstructed using backfilter projection method in short horizontal and verticle long axis. Spect slices were generated. LV Perfusion The quality of the study is good. The left ventricle is within normal limits in size. The right ventricle is unremarkable. The lung uptake is within normal limits. The distribution of tracer reveals normal uptake pattern throughout the LV myocardium on the stress study. The rest myocardial perfusion study shows no significant change. Wall Motion Wall motion study shows good contractility of the left ventricle. LVEF = 64%. Conclusion 1. Normal SPECT myocardial perfusion study. 2. Normal gated wall motion of the left ventricle. 3. In comparison with the last study of 11/26/2016, there is no significant change.
--- NOTE | 2018-12-10 17:19 | CARD ---
APPROVED REPORT Date of service: 12/10/2018 EXAM: Two-dimensional and M-mode echocardiogram with Doppler and color Doppler. INDICATION Chest Pain LVFX 2D DIMENSIONS Left Atrium (2D)4.7 (1.6-4.0cm)IVSd1.1 (0.7-1.1cm) LVDd4.7 (3.9-5.9cm)PWd1.1 (0.7-1.1cm) LVDs3.1 (2.5-4.0cm)FS (%) 34.7 % LVEF (%)63.7 (>50%) M-Mode DIMENSIONS Aortic Root3.60 (2.2-3.7cm)Aortic Cusp Exc.1.80 (1.5-2.0cm) Aortic Valve AoV Peak Ivchrell444.0cm/sAoV VTI37.9cmAO Peak GR.13mmHg LVOT Peak Kgdoepjc106.0cm/sLVOT VTI34.60cmAO Mean GR.7mmHg Mitral Valve MV E Zunwtijd18.4cm/sMV A Utyzocaa618.0cm/sE/A ratio0.8 TDI Lateral E' Peak V7.80cm/sMedial E' Peak V6.73cm/sE/Lateral E'11.3 E/Medial E'13.1 Pulmonary Valve PV Peak Fgctkljs076.0cm/sPV Peak Grad.4mmHg Tricuspid Valve TR Peak Dhcpxpdj583ei/sRAP [id number] Peak Gr.23mmHg [id number] LEFT VENTRICLE The left ventricle is normal size. There is normal left ventricular wall thickness. The left ventricular function is normal.EF-60-65% There is normal LV segmental wall motion. Transmitral Doppler flow pattern is Grade III-reversible restrictive diastolic dysfunction. No left ventricle thrombus noted on this study. There is no ventricular septal defect visualized. There is no left ventricular aneurysm. There is no mass noted in the left ventricle. RIGHT VENTRICLE The right ventricle is normal size. There is normal right ventricular wall thickness. The right ventricular systolic function is normal. ATRIA The left atrium is mildly dilated. The right atrium size is normal. The interatrial septum is intact with no evidence for an atrial septal defect. AORTIC VALVE The aortic valve is normal in structure. There is trace aortic regurgitation. There is no aortic valvular stenosis. There is no aortic valvular vegetation. MITRAL VALVE The mitral valve is thickened but opens well. Mitral regurgitation is mild. There is no mitral valve stenosis. There is no evidence of mitral valve prolapse. TRICUSPID VALVE The tricuspid valve leaflets are thickened , but open well. There is mild tricuspid regurgitation.RVSP-33 mmof Hg There is no tricuspid valve stenosis. There is no tricuspid valve prolapse or vegetation. PULMONIC VALVE The pulmonary valve is normal in structure. There is trace pulmonic valvular regurgitation. There is no pulmonic valvular stenosis. GREAT VESSELS The aortic root is normal in size. The ascending aorta is normal in size. The pulmonary artery is normal. The IVC is normal in size and collapses >50% with inspiration. PERICARDIAL EFFUSION There is no pleural effusion. There is no pericardial effusion. <Conclusion> The left ventricle is normal size. There is normal left ventricular wall thickness. The left ventricular function is normal.EF-60-65% There is trace aortic regurgitation. Mitral regurgitation is mild. There is mild tricuspid regurgitation.RVSP-33 mmof Hg The IVC is normal in size and collapses >50% with inspiration. There is no pericardial effusion.
--- NOTE | 2018-12-10 19:03 | CON ---
DATE: 12/10/2018 CONSULT SERVICE: Cardiology. REASON FOR CONSULTATION: Followup, abdominal pain radiating to the chest and uncontrolled hypertension. BRIEF CLINICAL HISTORY: This is a 78-year-old male with past medical history significant for hypertension, hyperlipidemia, diabetes mellitus, history of TIA, came to the emergency room because feeling a pressure in the belly and radiating to the chest. I checked the blood pressure and found to be 196/96. Then, the patient tried to rest and then checked the pressure, all around found to be 192/86. Called Dr. Corley's office, I spoke to Santa and advised to come to the ER. Denies any diaphoresis. Denies any dizziness. Denies any chest pain or denies any pain radiating to arm, jaw or back pain. Admitting blood pressure in the ER was 132/90. PAST MEDICAL HISTORY: Significant for hypertension, hyperlipidemia, gastroesophageal reflux, macular degeneration, and peripheral neuropathy. PAST SURGICAL HISTORY: Significant for removal of stone from the kidney. History of admission here in 06/2018 with abdominal pain, advised stress test and echo, but the patient never showed up in office. I did not proceed for a stress test. CURRENT MEDICATIONS: The patient at home was taking vitamin D, losartan, atorvastatin, aspirin, and ascorbic acid. ALLERGIES: ALLERGY TO CIPROFLOXACIN, IBUPROFEN, PENICILLIN, AND DYE. REVIEW OF SYSTEMS: As per HPI. PHYSICAL EXAMINATION: VITAL SIGNS: As follows; height of the patient 5 feet 6 inches, weight of the patient 192 pounds, and body mass index 31 kg/m2. Rest of the vitals; temperature afebrile, heart rate 57, and blood pressure 146/81. HEENT: PERRLA. Extraocular muscles intact. NECK: Supple. No carotid bruits or thyromegaly. CHEST: Clear to auscultation. HEART: S1 and S2 regular. ABDOMEN: Soft. EXTREMITIES: Clubbing and cyanosis negative. LABORATORY DATA: Blood workup as follows; WBC 6.4, hemoglobin 12.7, hematocrit 41, and platelet count 189. Chemistry shows sodium 140, potassium 4.5, chloride 109, carbon dioxide 27, anion gap of 9, BUN 15, and creatinine 1. EKG shows normal sinus; no acute ST-T changes noted. Troponin 0.01. IMPRESSION AND PLAN: A 78-year-old male with past medical history significant for diabetes, hypertension, hyperlipidemia, gastroesophageal reflux, macular degeneration, peripheral neuropathy, and history of removal of stone from the kidney, admitted with atypical chest pain. So far, troponin remains negative, but given the multiple risk factors of coronary artery disease, suggest echocardiogram and stress test. Further recommendation after echocardiogram and stress test. We will keep n.p.o. We will add lipid profile, TSH, and hemoglobin A1c in the blood workup for today. We will follow with you. Thank you Dr. Clark for providing us the opportunity in taking care of the patient, Yusef Montes. Wendy Billings MD
--- NOTE | 2018-12-10 23:47 | CARD ---
APPROVED REPORT Date of service: 12/10/2018 EKG Measurement Heart [id number] <Conclusion> Normal sinus rhythm Left axis deviation Incomplete right bundle branch block Abnormal ECG
== END 2018-12-10 17:30 | disposition home or self-care (01) ==
LOC: ED 13:11 → ERH 15:31 → 3RSO 21:49
PROVIDERS: ADMIT Internal Medicine; ATTEND Internal Medicine
DX: R07.89 Other chest pain (principal); E11.42 Type 2 diabetes mellitus with diabetic polyneuropathy; I10 Essential (primary) hypertension; M47.816 Spondylosis without myelopathy or radiculopathy, lumbar region; M47.812 Spondylosis without myelopathy or radiculopathy, cervical region; K21.9 Gastro-esophageal reflux disease without esophagitis; E78.5 Hyperlipidemia, unspecified; H35.30 Unspecified macular degeneration; H40.9 Unspecified glaucoma; Z86.73 Personal history of transient ischemic attack (TIA), and cerebral infarction without residual deficits; Z87.891 Personal history of nicotine dependence
CPT/HCPCS: 36415; 71046; 72040; 72100; 78452; 80053; 80061; 82948; 83036; 83735; 83880; 84100; 84443; 84484; 85025; 93005; 93017; 93306; 99285; A9502; G0378; G0480; J1650; J2785; J7030

== ENCOUNTER 2018-12-25 07:37 | Outpatient (CLI) | payer MEDICARE, OTHER | END 2018-12-25 07:38 | disposition home or self-care (01) | LOC: LAB 07:37 ==